=== PATIENT | female | born 1955 | race Caucasian/White ===

== ENCOUNTER 2018-10-29 12:04 | Observation (INO) | payer MEDICARE, BC ==
--- NOTE | 2018-10-29 12:30 | ED ---
Chest Pain HPI - General Chief Complaint: Chest Pain Stated Complaint: poss stemi Time Seen by Provider: 10/29/18 12:19 Source: patient, EMS Mode of arrival: EMS Limitations: no limitations - History of Present Illness Initial Comments: Patient is a 63-year-old female presents with a chief complaint of chest pain. Her pain started about 7:30 this morning. She says that initially when she woke up she felt dizzy. As the day progressed, she began having a burning sensation in her left chest. She admits to nausea and diaphoresis. Patient has a history of angina and is currently on blood pressure medication. She has history of high cholesterol, she is a former smoker, quitting 40 years ago. She is a family history of cardiac and vascular disease. Patient states that she has never had a heart attack or stroke before. The patient was given aspirin and nitroglycerin by EMS, with resolution of her symptoms. - Related Data Home Medications Medication Instructions Recorded Confirmed ALPRAZolam [Xanax] 0.125 - 0.25 mg PO DAILY PRN 10/29/18 10/29/18 Aspirin EC [Ecotrin Low Dose] 81 mg PO DAILY 10/29/18 10/29/18 Atorvastatin Calcium [Lipitor] 20 mg PO DAILY 10/29/18 10/29/18 Esomeprazole Magnesium [NexIUM] 40 mg PO DAILY 10/29/18 10/29/18 Levothyroxine Sodium [Synthroid] 50 mcg PO MOTUWETHFRSA 10/29/18 10/29/18 Levothyroxine Sodium [Synthroid] 100 mcg PO DAILY 10/29/18 10/29/18 Meloxicam [Mobic] 15 mg PO DAILY 10/29/18 10/29/18 Metoprolol Tartrate [Lopressor] 25 mg PO HS 10/29/18 10/29/18 Metoprolol Tartrate [Lopressor] 50 mg PO QAM 10/29/18 10/29/18 Ranolazine [Ranexa] 1,000 mg PO BID 10/29/18 10/29/18 Turmeric-Curcumin 1 tab PO BID 10/29/18 10/29/18 amLODIPine BESYLATE [Norvasc] 2.5 mg PO BID 10/29/18 10/29/18 Allergies Allergy/AdvReac Type Severity Reaction Status Date / Time cephalexin [From Keflex] Allergy Anaphylaxis Verified 10/29/18 12:27 clarithromycin [From Biaxin] Allergy Unknown Verified 10/29/18 12:27 codeine Allergy Rash/Hives Verified 10/29/18 12:27 doxycycline Allergy Rash/Hives Verified 10/29/18 12:27 ibandronate sodium Allergy Unknown Verified 10/29/18 12:27 [From Boniva] Iodinated Contrast- Oral and Allergy Chest Pain Verified 10/29/18 12:27 IV Dye isosorbide [From Imdur] Allergy Confusion Verified 10/29/18 12:27 nitrofurantoin Allergy Rash/Hives Verified 10/29/18 12:27 [From Macrobid] Penicillins Allergy Rash/Hives Verified 10/29/18 12:27 Review of Systems ROS Statement: Those systems with pertinent positive or pertinent negative responses have been documented in the HPI. ROS Other: All systems not noted in ROS Statement are negative. Respiratory: Reports: dyspnea Cardiovascular: Reports: chest pain Gastrointestinal: Reports: nausea Past Medical History Past Medical History: Hyperlipidemia, Hypertension, Thyroid Disorder Additional Past Medical History / Comment(s): ANGINA History of Any Multi-Drug Resistant Organisms: None Reported Past Surgical History: Adenoidectomy, Breast Surgery, Cholecystectomy, Heart Catheterization, Orthopedic Surgery, Tonsillectomy Past Psychological History: No Psychological Hx Reported Smoking Status: Never smoker Past Alcohol Use History: None Reported Past Drug Use History: None Reported General Exam Limitations: no limitations General appearance: alert, in no apparent distress Head exam: Present: atraumatic, normocephalic Eye exam: Present: normal appearance ENT exam: Present: normal exam Neck exam: Present: normal inspection Respiratory exam: Present: normal lung sounds bilaterally. Absent: respiratory distress, wheezes Cardiovascular Exam: Present: regular rate, normal rhythm GI/Abdominal exam: Present: soft. Absent: distended, tenderness Rectal exam: Present: deferred Extremities exam: Present: normal inspection. Absent: pedal edema Back exam: Present: normal inspection, full ROM Neurological exam: Present: alert, oriented X3 Psychiatric exam: Present: normal affect, normal mood Skin exam: Present: warm, dry, intact Course Vital Signs 10/29/18 10/29/18 10/29/18 12:14 12:30 13:00 Temperature 98.1 F Pulse Rate 87 84 79 Respiratory 16 16 16 Rate Blood Pressure 137/82 137/82 126/76 O2 Sat by Pulse 98 98 98 Oximetry 10/29/18 10/29/18 13:30 14:00 Temperature Pulse Rate 80 Respiratory 14 Rate Blood Pressure 130/84 136/68 O2 Sat by Pulse Oximetry Chest Pain MDM - MDM Patient presents with a chief complaint of chest pain. Initial evaluation, vitals are stable, patient is in no acute distress. History is concerning for unstable angina. Her symptoms resolved after nitroglycerin and aspirin. EKG performed at 1209 shows normal sinus rhythm with nonspecific T-wave changes. QT segment is mildly prolonged at 476. There are no acute ischemic findings. There is no previous EKG to compare to. Patient will be evaluated with basic labs and chest x-ray. Cardiac enzymes drawn. Patient will be admitted for further evaluation by cardiology. 2:42 PM Laboratory evaluation this patient is unremarkable. On reevaluation, she remained stable. Case discussed with some physician who accepts admission for further cardiac evaluation. Disposition Clinical Impression: Moderate risk chest pain Disposition: ADMITTED IP TO THIS [facility] Condition: Good Referrals: None,Stated [Primary Care Provider] - 1-2 days Decision to Admit Reason: Admit from EC - Out of Hospital Transfer - Req. Specs Out of Hospital Transfer - Requested Specifics: Telemetry Unit
--- NOTE | 2018-10-29 12:50 | XR ---
EXAMINATION TYPE: XR chest 2V DATE OF EXAM: 10/29/2018 COMPARISON: 12/22/2011 HISTORY: Chest pain TECHNIQUE: Frontal and lateral views of the chest are obtained. FINDINGS: There is no focal air space opacity, pleural effusion, or pneumothorax seen. The cardiac silhouette size is within normal limits. The osseous structures are intact. IMPRESSION: No acute cardiopulmonary process.
[2018-10-29 13:08] LABS: Basophils % (A) 0 %; Eosinophils # (A) 0.1 k/uL (0-0.7); Eosinophils % (A) 1 %; HCT 36.2 % (34.0-46.0); HGB 11.8 gm/dL (11.4-16.0); Lymphocytes # (A) 0.8 k/uL (1.0-4.8); Lymphocytes % (A) 14 %; MCH 30.5 pg (25.0-35.0); MCHC 32.7 g/dL (31.0-37.0); MCV 93.4 fL (80.0-100.0); Mean Platelet Volume 7.3; Monocytes # (A) 0.2 k/uL (0-1.0); Monocytes % (A) 4 %; Neutrophils # (A) 4.1 k/uL (1.3-7.7); Neutrophils % (A) 77 %; Platelet Count 159 k/uL (150-450); RBC 3.87 m/uL (3.80-5.40); RDW 15.1 % (11.5-15.5); WBC 5.3 k/uL (3.8-10.6)
[2018-10-29 13:18] LABS: Calcium 9.1 mg/dL (8.4-10.2)
[2018-10-29] MEDS ORDERED: NALOXONE 0.4 MG/ML 1 ML VIAL IV PRN (14:40)
[2018-10-29] MEDS ORDERED: ALPRAZolam 0.25 MG TAB PO PRN (17:29)
--- NOTE | 2018-10-29 17:39 | P.HPIM ---
History of Present Illness H&P Date: 10/29/18 Chief Complaint: Chest pain 63-year-old female with PMH of hypertension, hypothyroidism, hyperlipidemia, angina presents to the ED for chest pain. Patient reports waking up this morning around 7 AM feeling lightheaded. Lightheadedness was associated with nausea. Patient reports that the symptoms progressively got worse until today. Patient reported chest pain as she was sitting down later on through the day. Pain was described as burning in nature across the wall of the talus. Patient reports radiation of the pain to the left arm. Pain is 6 out of 10 in severity. Patient was given nitro and aspirin by EMS which improved her pain. Pain is not aggravated with movement or deep inspiration. Patient reports taking Ranexa her anginal type chest pain has been ongoing for years. This chest pain was completely different from her anginal chest pain. Her anginal chest pain is described as pressure-like in nature, aggravated with exertion. 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 She does not have a counter clerk [employer] or PCP here. Patient reports smoking for 5 years, half pack daily, quit 40 years ago. Patient reports undergoing a stress test that was negative in March 2018. Patient reports undergoing cardiac catheterization in 2012 which showed mild plaque disease. In the ED, vital signs are stable. CBC and CMP were unremarkable. Troponin was less than 0.012, EKG showing normal sinus rhythm and prolonged QT interval. Chest x-ray was negative. Patient is admitted for chest pain, rule out acute coronary syndrome, cardiology was consulted. Review of Systems Pertinent positives and negatives as discussed in HPI, a complete review of systems was performed and all other systems are negative. Past Medical History Past Medical History: Hyperlipidemia, Hypertension, Thyroid Disorder Additional Past Medical History / Comment(s): ANGINA History of Any Multi-Drug Resistant Organisms: None Reported Past Surgical History: Adenoidectomy, Breast Surgery, Cholecystectomy, Heart Catheterization, Orthopedic Surgery, Tonsillectomy Additional Past Surgical History / Comment(s): breast reduction Past Psychological History: No Psychological Hx Reported Smoking Status: Never smoker Past Alcohol Use History: None Reported Past Drug Use History: None Reported - Past Family History Mother History Unknown: Yes Family Medical History: Coronary Artery Disease (CAD), Myocardial Infarction ([place]) Medications and Allergies Home Medications Medication Instructions Recorded Confirmed Type ALPRAZolam [Xanax] 0.125 - 0.25 mg PO DAILY PRN 10/29/18 10/29/18 History Aspirin EC [Ecotrin Low Dose] 81 mg PO DAILY 10/29/18 10/29/18 History Atorvastatin Calcium [Lipitor] 20 mg PO DAILY 10/29/18 10/29/18 History Esomeprazole Magnesium [NexIUM] 40 mg PO DAILY 10/29/18 10/29/18 History Levothyroxine Sodium [Synthroid] 50 mcg PO MOTUWETHFRSA 10/29/18 10/29/18 History Levothyroxine Sodium [Synthroid] 100 mcg PO DAILY 10/29/18 10/29/18 History Meloxicam [Mobic] 15 mg PO DAILY 10/29/18 10/29/18 History Metoprolol Tartrate [Lopressor] 25 mg PO HS 10/29/18 10/29/18 History Metoprolol Tartrate [Lopressor] 50 mg PO QAM 10/29/18 10/29/18 History Ranolazine [Ranexa] 1,000 mg PO BID 10/29/18 10/29/18 History Turmeric-Curcumin 1 tab PO BID 10/29/18 10/29/18 History amLODIPine BESYLATE [Norvasc] 2.5 mg PO BID 10/29/18 10/29/18 History Allergies Allergy/AdvReac Type Severity Reaction Status Date / Time cephalexin [From Keflex] Allergy Anaphylaxis Verified 10/29/18 12:27 clarithromycin [From Biaxin] Allergy Unknown Verified 10/29/18 12:27 codeine Allergy Rash/Hives Verified 10/29/18 12:27 doxycycline Allergy Rash/Hives Verified 10/29/18 12:27 ibandronate sodium Allergy Unknown Verified 10/29/18 12:27 [From Boniva] Iodinated Contrast- Oral and Allergy Chest Pain Verified 10/29/18 12:27 IV Dye isosorbide [From Imdur] Allergy Confusion Verified 10/29/18 12:27 nitrofurantoin Allergy Rash/Hives Verified 10/29/18 12:27 [From Macrobid] Penicillins Allergy Rash/Hives Verified 10/29/18 12:27 Physical Exam Vitals: Vital Signs Temp Pulse Pulse Resp BP BP Pulse Ox 10/29/18 15:30 98.0 F 81 18 148/83 94 L 10/29/18 15:00 75 15 111/99 97 10/29/18 14:00 80 14 136/68 10/29/18 13:30 130/84 10/29/18 13:00 79 16 126/76 98 10/29/18 12:30 84 16 137/82 98 10/29/18 12:14 98.1 F 87 16 137/82 98 Intake and Output 10/29/18 10/29/18 10/29/18 06:59 14:59 22:59 Other: # Voids 1 Weight 61.235 kg General: [non toxic], [no distress], [appears at stated age] Derm: [warm], [dry] Head: [atraumatic], [normocephalic], [symmetric] Eyes: [EOMI], [no lid lag], [anicteric sclera] Mouth: [no lip lesion], [mucus membranes moist] Cardiovascular: [S1S2 reg], [no murmur], [positive posterior tibial pulse bilateral], Lungs: [CTA bilateral], [no rhonchi, no rales] , [no accessory muscle use] Abdominal: [soft], [ nontender to palpation], [no guarding], [no appreciable organomegaly] Ext: [no gross muscle atrophy], [no edema], [no contractures] Neuro: [ CN II-XI grossly intact], [no focal neuro deficits] Psych: [Alert], [oriented], [appropriate affect] Results CBC & Chem 7: 10/29/18 12:12 10/29/18 12:12 Labs: Abnormal Lab Results - Last 24 Hours (Table) 10/29/18 10/29/18 Range/Units 12:12 12:12 Lymphocytes # 0.8 L (1.0-4.8) k/uL Glucose 144 H (74-99) mg/dL Thrombosis Risk Factor Assmnt - Choose All That Apply Any of the Below Risk Factors Present?: No Other Risk Factors: Yes Each Risk Factor Represents 2 Points: Age 61-74 years Thrombosis Risk Factor Assessment Total Risk Factor Score: 2 Thrombosis Risk Factor Assessment Level: Low Risk Assessment and Plan Assessment: Assessment and Plan Chest pain, atypical with history of typical anginal chest pain. Hypertension Hyperlipidemia Hypothyroidism Troponin less than 0.012 with EKG showing normal sinus rhythm with prolonged QT interval. Chest x-ray negative. Plans: Trend troponin/EKG to rule out ACS. Follow echocardiogram. Follow-up cardiology consultation. Telemetry monitoring . Continue Ranexa. Continue aspirin, Lipitor and beta gloria. BP 148/83. Plans: Continue Amlodipine and Metoprolol. Monitor vitals, adjust medications as necessary. Plans: Continue Lipitor. Plans: Continue Synthroid. Patient admitted for chest pain, rule out acute coronary syndrome, cardiology consulted. She is pending clinical improvement. Likely DC 1-2 days. Patient names her surrogate decision-maker in the case that she can't make decisions for herself. Patient reiterates full code at this time.
[2018-10-29] MEDS: amLODIPine 2.5 MG TAB PO SCH (20:41)
[2018-10-29] MEDS: RANOLAZINE 500 MG TAB.ER.12H PO SCH (20:41)
[2018-10-29] MEDS ORDERED: METOPROLOL TARTRATE 25 MG TAB PO SCH (21:00)
[2018-10-30] MEDS ORDERED: LEVOTHYROXINE 50 MCG TAB PO SCH (06:30)
[2018-10-30] MEDS ORDERED: PANTOPRAZOLE 40 MG TABLET PO SCH (07:30)
[2018-10-30 08:04] LABS: Basophils % (A) 1 %; Eosinophils # (A) 0.1 k/uL (0-0.7); Eosinophils % (A) 1 %; HCT 36.7 % (34.0-46.0); HGB 12.2 gm/dL (11.4-16.0); Lymphocytes # (A) 0.7 k/uL (1.0-4.8); Lymphocytes % (A) 20 %; MCH 30.9 pg (25.0-35.0); MCHC 33.1 g/dL (31.0-37.0); MCV 93.3 fL (80.0-100.0); Mean Platelet Volume 6.6; Monocytes # (A) 0.3 k/uL (0-1.0); Monocytes % (A) 7 %; Neutrophils # (A) 2.6 k/uL (1.3-7.7); Neutrophils % (A) 69 %; Platelet Count 174 k/uL (150-450); RBC 3.94 m/uL (3.80-5.40); RDW 14.7 % (11.5-15.5); WBC 3.8 k/uL (3.8-10.6)
[2018-10-30 08:35] LABS: African American GFR (CKD) >90 (>60 ml/min/1.73 sqM); Anion Gap 7 mmol/L; Blood Urea Nitrogen 13 mg/dL (7-17); Calcium 9.4 mg/dL (8.4-10.2); Carbon Dioxide 28 mmol/L (22-30); Chloride 105 mmol/L (98-107); Glucose 106 mg/dL (74-99); Potassium 3.9 mmol/L (3.5-5.1); Sodium 140 mmol/L (137-145)
[2018-10-30] MEDS ORDERED: METOPROLOL TARTRATE 50 MG TAB PO SCH (09:00)
[2018-10-30] MEDS ORDERED: ASPIRIN 81 MG PO SCH (09:00)
[2018-10-30] MEDS ORDERED: ATORVASTATIN 20 MG TAB PO SCH (09:00)
[2018-10-30 09:19] LABS: Cholesterol 162 mg/dL (<200); HDL Cholesterol 48 mg/dL (40-60); LDL Cholesterol,Calculated 82 mg/dL (0-99); Triglycerides 158 mg/dL (<150)
[2018-10-30] MEDS ORDERED: ATORVASTATIN 80 MG TAB PO STA (10:02)
[2018-10-30] MEDS ORDERED: SODIUM CHLORIDE 0.9% 1,000 ML in EMPTY BAG 1 BAG IV ONE (10:02)
[2018-10-30] MEDS ORDERED: NITROGLYCERIN SL TABS 0.4 MG TAB SUBLINGUAL PRN (10:02)
--- NOTE | 2018-10-30 10:10 | P.CRDCN ---
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 She recently moved here from [place]. She has had to establish with a bricklayer paving brick in [facility]. We've been asked to see her in consultation secondary to chest discomfort. She states she woke up yesterday morning feeling dizzy, like the room was spinning. She has had vertigo in the past but this was not as intense. She then started feeling a warm sensation in her chest from left to right that radiated down the left arm. This persisted for approximately 15 minutes and EMS was called. Upon arrival she was having ongoing chest discomfort they gave her sublingual nitroglycerin and 4 baby aspirin. Her chest pain slowly started to subside however she continued to remain dizzy. She had associated nausea with no vomiting and felt as though she was clammy and diaphoretic. She denies any associated shortness of breath or palpitations. Seen and examined resting comfortably in bed in no acute distress with family at the bedside. She denies any further symptoms of chest discomfort. She states she has been up and walking around the room. EKG reveals sinus mechanism with T-wave abnormality noted in anterior leads. There is no old EKG for comparison. Chest x-ray is negative for an acute cardiopulmonary process. Laboratory data reviewed, cardiac enzymes negative 3, WBC 3.8, hemoglobin 12.2, platelets 174, sodium 140, potassium 3.9, creatinine 0.79, LDL 82 and proBNP 228. Current cardiac medications include Ranexa 1000 mg twice a day, atorvastatin 20 mg daily, Lopressor 50 mg in the morning and 25 mg at bedtime, amlodipine 2.5 mg twice a day and aspirin 81 mg daily. At the time of my exam: CONSTITUTIONAL: Denies fever. Denies chills. EYES: Denies blurred vision. Denies vision changes. Denies eye pain. EARS, NOSE, MOUTH & THROAT: Denies headache. Denies sore throat. Denies ear pain. CARDIOVASCULAR: Denies chest pain. Denies shortness of breath. Denies orthopnea. Denies PND. Denies palpitations. RESPIRATORY: Denies cough. GASTROINTESTINAL: Denies abdominal pain. Denies diarrhea. Denies constipation. Denies nausea. Denies vomiting. MUSCULOSKELETAL: Denies myalgias. INTEGUMENTARY: Denies pruitis. Denies rash. NEUROLOGIC: Denies numbness. Denies tingling. Denies weakness. PSYCHIATRIC: Denies anxiety. Denies depression. ENDOCRINE: Denies fatigue. Denies weight change. Denies polydipsia. Denies polyurina. GENITOURINARY: Denies burning, hematuria or urgency with micturation. HEMATOLOGIC: Denies history of anemia. Denies bleeding. Blood pressure 97/66 heart rate 76 afebrile maintaining oxygen saturation on room air GENERAL: This is a 63-year-old female in no apparent distress at the time of my examination. HEENT: Head is atraumatic, normocephalic. Pupils are equal, round. Sclerae anicteric. Conjunctivae are clear. Mucous membranes of the mouth are moist. Neck is supple. There is no jugular venous distention. No carotid bruit is heard. LUNGS: Clear to auscultation no wheezes, rales or rhonchi. No chest wall tenderness is noted on palpation or with deep breathing. HEART: Regular rate and rhythm without murmurs, rubs or gallops. S1 and S2 heard. ABDOMEN: Soft, nontender. Bowel sounds are heard. No organomegaly noted. EXTREMITIES: No evidence of peripheral edema and no calf tenderness noted. VASCULAR: Radial and dorsalis pedis pulses palpated, no evidence of clubbing. NEUROLOGIC: Patient is awake, alert and oriented x3. ASSESSMENT Unstable angina Hypertension Dyslipidemia Hypothyroidism PLAN Recommend proceeding with cardiac catheterization to assess for obstructive coronary artery disease. I have discussed the risks, benefits and alternative therapies for the above-mentioned procedure and for both sedation/analgesia as well as necessary blood product administration, if indicated, as they pertain to this patient. The patient has indicated understanding and acceptance of the risks and procedures discussed. Questions have been answered appropriately and she is agreeable to move forward with the above stated procedure. Echocardiogram has been obtained and will be reviewed. Decrease Lopressor to 25 mg twice a day and amlodipine to 2.5 mg daily in the morning. Further recommendations to follow based upon clinical course. Thank you kindly for this consultation. Nurse Practitioner note has been reviewed, I agree with a documented findings and plan of care. Patient was seen and examined. Past Medical History Past Medical History: Hyperlipidemia, Hypertension, Thyroid Disorder Additional Past Medical History / Comment(s): ANGINA History of Any Multi-Drug Resistant Organisms: None Reported Past Surgical History: Adenoidectomy, Breast Surgery, Cholecystectomy, Heart Catheterization, Orthopedic Surgery, Tonsillectomy Additional Past Surgical History / Comment(s): breast reduction Past Psychological History: No Psychological Hx Reported Smoking Status: Never smoker Past Alcohol Use History: None Reported Past Drug Use History: None Reported - Past Family History Mother History Unknown: Yes Family Medical History: Coronary Artery Disease (CAD), Myocardial Infarction ([place]) Medications and Allergies Home Medications Medication Instructions Recorded Confirmed Type ALPRAZolam [Xanax] 0.125 - 0.25 mg PO DAILY PRN 10/29/18 10/29/18 History Aspirin EC [Ecotrin Low Dose] 81 mg PO DAILY 10/29/18 10/29/18 History Atorvastatin Calcium [Lipitor] 20 mg PO DAILY 10/29/18 10/29/18 History Esomeprazole Magnesium [NexIUM] 40 mg PO DAILY 10/29/18 10/29/18 History Levothyroxine Sodium [Synthroid] 50 mcg PO MOTUWETHFRSA 10/29/18 10/29/18 History Levothyroxine Sodium [Synthroid] 100 mcg PO KNIGHT 10/29/18 10/29/18 History Meloxicam [Mobic] 15 mg PO DAILY 10/29/18 10/29/18 History Metoprolol Tartrate [Lopressor] 25 mg PO HS 10/29/18 10/29/18 History Metoprolol Tartrate [Lopressor] 50 mg PO QAM 10/29/18 10/29/18 History Ranolazine [Ranexa] 1,000 mg PO BID 10/29/18 10/29/18 History Turmeric-Curcumin 1 tab PO BID 10/29/18 10/29/18 History amLODIPine BESYLATE [Norvasc] 2.5 mg PO BID 10/29/18 10/29/18 History Allergies Allergy/AdvReac Type Severity Reaction Status Date / Time cephalexin [From Keflex] Allergy Anaphylaxis Verified 10/29/18 12:27 clarithromycin [From Biaxin] Allergy Unknown Verified 10/29/18 12:27 codeine Allergy Rash/Hives Verified 10/29/18 12:27 doxycycline Allergy Rash/Hives Verified 10/29/18 12:27 ibandronate sodium Allergy Unknown Verified 10/29/18 12:27 [From Boniva] Iodinated Contrast- Oral and Allergy Chest Pain Verified 10/29/18 12:27 IV Dye isosorbide [From Imdur] Allergy Confusion Verified 10/29/18 12:27 nitrofurantoin Allergy Rash/Hives Verified 10/29/18 12:27 [From Macrobid] Penicillins Allergy Rash/Hives Verified 10/29/18 12:27 Physical Exam Vitals: Vital Signs Temp Pulse Pulse Resp BP BP BP 10/30/18 07:20 98.2 F 76 16 97/66 10/30/18 04:00 98.5 F 61 18 98/63 10/30/18 00:00 72 18 10/29/18 23:54 97.6 F 72 18 114/70 10/29/18 20:00 80 18 10/29/18 19:30 98.1 F 80 18 125/60 10/29/18 15:30 98.0 F 81 18 148/83 10/29/18 15:00 75 15 111/99 10/29/18 14:00 80 14 136/68 10/29/18 13:30 130/84 10/29/18 13:00 79 16 126/76 10/29/18 12:30 84 16 137/82 10/29/18 12:14 98.1 F 87 16 137/82 Pulse Ox 10/30/18 07:20 94 L 10/30/18 04:00 94 L 10/30/18 00:00 10/29/18 23:54 96 10/29/18 20:00 10/29/18 19:30 96 10/29/18 15:30 94 L 10/29/18 15:00 97 10/29/18 14:00 10/29/18 13:30 10/29/18 13:00 98 10/29/18 12:30 98 10/29/18 12:14 98 Intake and Output 10/29/18 10/30/18 10/30/18 22:59 06:59 14:59 Other: # Voids 1 1 Results 10/30/18 07:20 10/30/18 07:20 Cardiac Enzymes 10/29/18 10/29/18 10/30/18 Range/Units 12:12 17:55 00:19 Troponin I <0.012 <0.012 <0.012 (0.000-0.034) ng/mL CBC 10/29/18 10/30/18 Range/Units 12:12 07:20 WBC 5.3 3.8 (3.8-10.6) k/uL RBC 3.87 3.94 (3.80-5.40) m/uL Hgb 11.8 12.2 (11.4-16.0) gm/dL Hct 36.2 36.7 (34.0-46.0) % Plt Count 159 174 (150-450) k/uL Comprehensive Metabolic Panel 10/29/18 Range/Units 12:12 Sodium 140 (137-145) mmol/L Potassium 4.0 (3.5-5.1) mmol/L Chloride 106 (98-107) mmol/L Carbon Dioxide 24 (22-30) mmol/L BUN 12 (7-17) mg/dL Creatinine 0.81 (0.52-1.04) mg/dL Glucose 144 H (74-99) mg/dL Calcium 9.1 (8.4-10.2) mg/dL Current Medications Generic Name Dose Route Start Last Admin Trade Name Freq PRN Reason Stop Dose Admin Alprazolam 0.25 mg 10/29/18 17:29 Xanax PO DAILY PRN Anxiety Amlodipine Besylate 2.5 mg 10/29/18 21:00 10/29/18 20:41 Norvasc PO 2.5 mg BID ISABELLE Administration Aspirin 81 mg 10/30/18 09:00 Aspirin PO DAILY [facility] Atorvastatin Calcium 20 mg 10/30/18 09:00 Lipitor PO DAILY [facility] Levothyroxine Sodium 100 mcg 11/04/18 06:30 Synthroid PO Knight@0630 ISABELLE Levothyroxine Sodium 50 mcg 10/30/18 06:30 10/30/18 06:26 Synthroid PO 50 mcg [id number] ISABELLE Administration Metoprolol Tartrate 25 mg 10/29/18 21:00 10/29/18 20:41 Lopressor PO 25 mg HS ISABELLE Administration Metoprolol Tartrate 50 mg 10/30/18 09:00 Lopressor PO QAM ISABELLE Naloxone HCl 0.2 mg 10/29/18 14:40 Narcan IV Q2M PRN Opioid Reversal Pantoprazole Sodium 40 mg 10/30/18 07:30 Protonix PO [id number] [facility] Ranolazine 1,000 mg 10/29/18 21:00 10/29/18 20:41 Ranexa PO 1,000 mg BID ISABELLE Administration Intake and Output 10/29/18 10/30/18 10/30/18 22:59 06:59 14:59 Other: # Voids 1 1 10/30/18 07:20 10/29/18 12:12
[2018-10-30] MEDS: amLODIPine 2.5 MG TAB PO SCH (10:21)
[2018-10-30] MEDS: RANOLAZINE 500 MG TAB.ER.12H PO SCH (10:21)
[2018-10-30] MEDS ORDERED: methylPREDNISolone SOD SUCCI 125 MG/2 ML VIAL IV STA (11:00)
[2018-10-30] MEDS ORDERED: FAMOTIDINE 20 MG/2 ML VIAL IV STA (11:00)
[2018-10-30] MEDS ORDERED: diphenhydrAMINE 50 MG/ML 1 ML VIAL IVP STA (11:00)
[2018-10-30] MEDS ORDERED: fentaNYL (PF) 50 MCG/ML 2 ML AMP ONE (12:00)
[2018-10-30] MEDS ORDERED: LIDOCAINE 1% INJ 10MG/ML (20 ML MDV) ONE (12:00)
[2018-10-30 12:08] VITALS: TEMP 98.3
[2018-10-30] MEDS ORDERED: fentaNYL (PF) 50 MCG/ML 2 ML AMP IVP ONE (12:15)
[2018-10-30] MEDS ORDERED: MIDAZOLAM (PF) 2 MG/2 ML VIAL IVP ONE (12:15)
[2018-10-30] MEDS ORDERED: LIDOCAINE 1% INJ 10MG/ML (20 ML MDV) SQ ONE (12:17)
[2018-10-30] MEDS ORDERED: IV FLUID CONTINUATION 1,000 ML IV ONE (12:19)
[2018-10-30] MEDS ORDERED: IOPAMIDOL-370 125ML BTL INJ ONE (12:29)
--- NOTE | 2018-10-30 12:33 | ECHOF ---
Referral Reason:Chest pain MEASUREMENTS -------- HEIGHT: 160.0 cm WEIGHT: 61.2 kg BP: 114/70 IVSd: 0.8 cm (0.6 - 1.1) LVIDd: 4.1 cm (3.9 - 5.3) LVPWd: 0.9 cm (0.6 - 1.1) IVSs: 1.4 cm LVIDs: 2.5 cm LVPWs: 1.6 cm LAESV Index (A-L): 20.84 ml/m Ao Diam: 2.6 cm (2.0 - 3.7) AV Cusp: 1.4 cm (1.5 - 2.6) LA Diam: 2.6 cm (2.7 - 3.8) MV EXCURSION: 18.525 mm (> 18.000) MV EF SLOPE: 115 mm/s (70 - 150) EPSS: 0.9 cm MV E Chuck: 0.97 m/s MV A Chuck: 0.78 m/s MV E/A Ratio: 1.24 RAP: 5.00 mmHg RVSP: 32.56 mmHg FINDINGS -------- Sinus rhythm. This was a technically good study. The left ventricular size is normal. Left ventricular wall thickness is normal. Overall left vent ricular systolic function is normal with, an EF between 55 - 60 %. The diastolic filling pattern is normal for the age of the patient 12.85. The right ventricle is normal in size. The left atrial size is normal. Normal LA size by volume 22+/-6 ml/m2. The right atrial size is normal. Interatrial and interventricular septum intact. The aortic valve is trileaflet and appears structurally normal. The mitral valve is normal. Moderate mitral regurgitation is present. The tricuspid valve appears structurally normal. Mild tricuspid regurgitation present. Right vent ricular systolic pressure is normal at < 35 mmHg. There is no pulmonic regurgitation present. The aortic root size is normal. There is no pericardial effusion. CONCLUSIONS -------- 1. Sinus rhythm. 2. This was a technically good study. 3. The left ventricular size is normal. 4. Left ventricular wall thickness is normal. 5. Overall left ventricular systolic function is normal with, an EF between 55 - 60 %. 6. The diastolic filling pattern is normal for the age of the patient 12.85 7. The right ventricle is normal in size. 8. The left atrial size is normal. 9. Normal LA size by volume 22+/-6 ml/m2. 10. The right atrial size is normal. 11. Interatrial and interventricular septum intact. 12. The aortic valve is trileaflet and appears structurally normal. 13. The mitral valve is normal. 14. Moderate mitral regurgitation is present. 15. The tricuspid valve appears structurally normal. 16. Mild tricuspid regurgitation present. 17. Right ventricular systolic pressure is normal at < 35 mmHg. 18. There is no pulmonic regurgitation present. 19. The aortic root size is normal. 20. There is no pericardial effusion. FILE CLERK: Sandra Menjivar RDCS
[2018-10-30] MEDS ORDERED: RX INFO: IV CONTRAST WAS GIVEN 1 EACH MISC MISCELLANE PRN (12:39)
[2018-10-30] MEDS ORDERED: ISOSORBIDE MONONITRATE ER 15 MG TAB PO SCH (12:45)
--- NOTE | 2018-10-30 13:00 | CC ---
CARDIAC CATHETERIZATION REPORT Mrs. Vann is 63-year-old female who was admitted with symptoms suggestive of unstable angina. EKG showed T-wave inversions in the anterolateral leads. This patient had a previous cardiac catheterization and she was told that she had microvascular angina that was done about 6 years ago. In view of the new EKG changes, patient was recommended to have cardiac catheterization to rule out any significant progression in the coronary artery disease. PROCEDURE: The right groin was prepped and draped in the usual manner and the right femoral artery was entered using Seldinger technique and micropuncture needle under ultrasound guidance. A #6-English sheath was placed in. Selective coronary angiography was then performed in multiple projections and the left ventricular pressures were obtained. Patient tolerated the procedure well. HEMODYNAMICS: Left ventricular end-diastolic pressure is 8-10 mmHg prior to angiography. No gradient is noted across the aortic valve. SELECTIVE CORONARY ANGIOGRAPHY: Left main coronary artery is normal and patent. LAD is a good caliber blood vessel and gives rise to a good size diagonal branch. LAD and its branches shows minimal irregularities. Circumflex coronary artery gives rise to a good size obtuse marginal branch and shows mild irregularity. Right coronary artery is normal. FINAL IMPRESSION: 1. This study shows mild irregularity in mid LAD and the diagonal branch. Circumflex and right coronary arteries are normal. Left ventricular end-diastolic pressure is normal. 2. This patient's angina is probably on the basis of vasospasm which is microvascular angina. We will intensify the medical treatment. MMODL / IJN: [id number] /
[2018-10-30 14:31] VITALS: RESP 16
--- NOTE | 2018-10-30 14:49 | P.DS ---
Providers Date of admission: 10/29/18 14:40 Expected date of discharge: 10/30/18 Attending physician: Hal Hinojosa MD Consults: 10/29/18 14:41 Consult Physician Routine Consulting Provider: Harjeet Gregorio Consult Reason/Comments: moderate risk chest pain Do you want consulting provider notified?: Yes Primary care physician: Stated None Hospital Course: 63-year-old female with PMH of hypertension, hypothyroidism, hyperlipidemia, angina presents to the ED for chest pain. Patient reports waking up this morning around 7 AM feeling lightheaded. Lightheadedness was associated with nausea. Patient reports that the symptoms progressively got worse until today. Patient reported chest pain as she was sitting down later on through the day. Pain was described as burning in nature across the wall of the talus. Patient reports radiation of the pain to the left arm. Pain is 6 out of 10 in severity. Patient was given nitro and aspirin by EMS which improved her pain. Pain is not aggravated with movement or deep inspiration. Patient reports taking Ranexa her anginal type chest pain has been ongoing for years. This chest pain was completely different from her anginal chest pain. Her anginal chest pain is described as pressure-like in nature, aggravated with exertion. Patient reports seeing a anesthesiologist physician in [place]. She does not have a anesthesiologist physician or PCP here. Patient reports smoking for 5 years, half pack daily, quit 40 years ago. Patient reports undergoing a stress test that was negative in March 2018. Patient reports undergoing cardiac catheterization in 2012 which showed mild plaque disease. In the ED, vital signs are stable. CBC and CMP were unremarkable. Troponin was less than 0.012, EKG showing normal sinus rhythm and prolonged QT interval. Chest x-ray was negative. Patient is admitted for chest pain, rule out acute coronary syndrome, cardiology was consulted. Troponin was less than 0.0123 with EKG showing normal sinus rhythm with p rolonged QT interval. Chest x-ray was negative. Acute coronary syndrome was ruled out. Cardiology was consulted and recommended cardiac catheterization. Patient was resumed on her aspirin, Lipitor and beta gloria. Echocardiogram showed EF 55-60% without any wall motion abnormalities. Cardiac catheterization showed minimal irregularities. Patient's chest pain was thought to be secondary to microvascular angina on the basis of vasospasm. Patient was seen and examined. No acute events overnight. General: [non toxic], [no distress], [appears at stated age] Derm: [warm], [dry] Head: [atraumatic], [normocephalic], [symmetric] Eyes: [EOMI], [no lid lag], [anicteric sclera] Mouth: [no lip lesion], [mucus membranes moist] Cardiovascular: [S1S2 reg], [no murmur], [positive posterior tibial pulse bilateral], Lungs: [CTA bilateral], [no rhonchi, no rales] , [no accessory muscle use] Abdominal: [soft], [ nontender to palpation], [no guarding], [no appreciable organomegaly] Ext: [no gross muscle atrophy], [no edema], [no contractures] Neuro: [ CN II-XI grossly intact], [no focal neuro deficits] Psych: [Alert], [oriented], [appropriate affect] Assessment and Plan Chest pain, atypical with history of typical anginal chest pain. Hypertension Hyperlipidemia Hypothyroidism Troponin less than 0.0123 with EKG showing normal sinus rhythm with prolonged QT interval. echocardiogram shows EF 55-60% without any wall motion abnormalities. Cardiac catheterization shows minimal irregularities. Chest x- ray negative. Plans:. Follow-up cardiology consultation. Telemetry monitoring. Continue Ranexa. Continue aspirin, Lipitor and beta gloria. BP 120/77. Plans: Continue Amlodipine and Metoprolol. Monitor vitals, adjust medications as necessary. Plans: Continue Lipitor. Plans: Continue Synthroid. Patient admitted for chest pain, rule out acute coronary syndrome, cardiology consulted. Acute coronary syndrome ruled out. Cardiac catheterization with minimal irregularities. DC today with Cardiology clearance. Pertinent Studies: chest x-ray, echocardiogram Procedures: cardiac catheterization Patient Condition at Discharge: Good Plan - Discharge Summary Discharge Rx Participant: No New Discharge Prescriptions: New Isosorbide Mononitrate ER [Imdur] 15 mg PO DAILY #90 dose Nitroglycerin Sl Tabs [Nitrostat] 0.4 mg SUBLINGUAL Q5M PRN #1 bottle PRN Reason: Chest Pain Continue Meloxicam [Mobic] 15 mg PO DAILY Esomeprazole Magnesium [NexIUM] 40 mg PO DAILY Aspirin EC [Ecotrin Low Dose] 81 mg PO DAILY Levothyroxine Sodium [Synthroid] 100 mcg PO SENIOR Levothyroxine Sodium [Synthroid] 50 mcg PO MOTUWETHFRSA ALPRAZolam [Xanax] 0.125 - 0.25 mg PO DAILY PRN PRN Reason: Anxiety amLODIPine BESYLATE [Norvasc] 2.5 mg PO BID Metoprolol Tartrate [Lopressor] 25 mg PO HS Metoprolol Tartrate [Lopressor] 50 mg PO QAM Atorvastatin Calcium [Lipitor] 20 mg PO DAILY Ranolazine [Ranexa] 1,000 mg PO BID Discontinued Turmeric-Curcumin 1 tab PO BID Discharge Medication List ALPRAZolam [Xanax] 0.125 - 0.25 mg PO DAILY PRN 10/29/18 [History] Aspirin EC [Ecotrin Low Dose] 81 mg PO DAILY 10/29/18 [History] Atorvastatin Calcium [Lipitor] 20 mg PO DAILY 10/29/18 [History] Esomeprazole Magnesium [NexIUM] 40 mg PO DAILY 10/29/18 [History] Levothyroxine Sodium [Synthroid] 50 mcg PO MOTUWETHFRSA 10/29/18 [History] Levothyroxine Sodium [Synthroid] 100 mcg PO SENIOR 10/29/18 [History] Meloxicam [Mobic] 15 mg PO DAILY 10/29/18 [History] Metoprolol Tartrate [Lopressor] 25 mg PO HS 10/29/18 [History] Metoprolol Tartrate [Lopressor] 50 mg PO QAM 10/29/18 [History] Ranolazine [Ranexa] 1,000 mg PO BID 10/29/18 [History] amLODIPine BESYLATE [Norvasc] 2.5 mg PO BID 10/29/18 [History] Isosorbide Mononitrate ER [Imdur] 15 mg PO DAILY #90 dose 10/30/18 [Rx] Nitroglycerin Sl Tabs [Nitrostat] 0.4 mg SUBLINGUAL Q5M PRN #1 bottle 10/30/18 [Rx] Follow up Appointment(s)/Referral(s): None,Stated [Primary Care Provider] - 1-2 days Florecita Aranda MD [STAFF PHYSICIAN] - 2 Weeks Activity/Diet/Wound Care/Special Instructions: diet: Heart healthy Follow-up PCP within 1-2 days of discharge. Follow-up cardiology within 1 week of discharge. Take all medications as advised. Discharge Disposition: HOME SELF-CARE
[2018-10-30 17:16] VITALS: BP 100/54; PULSE 80
[2018-10-30] MEDS ORDERED: METOPROLOL TARTRATE 25 MG TAB PO SCH (21:00)
[2018-10-31] MEDS ORDERED: amLODIPine 2.5 MG TAB PO SCH (09:00)
[2018-11-04] MEDS ORDERED: LEVOTHYROXINE 100 MCG TAB PO SCH (06:30)
== END 2018-10-30 19:00 | disposition home or self-care (01) ==
LOC: EC 12:04 → 1SOBS 14:40
PROVIDERS: ADMIT Family Medicine; ATTEND Family Medicine
DX: R07.89 Other chest pain (principal); I10 Essential (primary) hypertension; E78.5 Hyperlipidemia, unspecified; I20.9 Angina pectoris, unspecified; R23.1 Pallor; E03.9 Hypothyroidism, unspecified; R42 Dizziness and giddiness; R11.0 Nausea; R61 Generalized hyperhidrosis; I45.81 Long QT syndrome; E78.00 Pure hypercholesterolemia, unspecified; Z79.82 Long term (current) use of aspirin; Z79.890 Hormone replacement therapy; Z79.1 Long term (current) use of non-steroidal anti-inflammatories (NSAID); Z79.899 Other long term (current) drug therapy; Z88.0 Allergy status to penicillin; Z88.5 Allergy status to narcotic agent; Z88.1 Allergy status to other antibiotic agents; Z88.8 Allergy status to other drugs, medicaments and biological substances; Z91.041 Radiographic dye allergy status; Z90.49 Acquired absence of other specified parts of digestive tract; Z87.891 Personal history of nicotine dependence; Z82.49 Family history of ischemic heart disease and other diseases of the circulatory system
CPT/HCPCS: 99285; 36415; 93005; 93306; 93458; 83880; 80061; 80048 ×2; 84484 ×2; 85025 ×2; 71046; G0378 ×2; C1760; C1894; C1769 ×2; J1200; J2930; J2001; J3010; Q9967; J2250

== ENCOUNTER → 2019-01-11 | Outpatient (CLI) | payer MEDICARE, BC ==
--- NOTE | 2019-01-13 20:09 | US ---
EXAMINATION TYPE: US thyroid st tissue head/neck DATE OF EXAM: 01/11/2019 COMPARISON: NONE CLINICAL HISTORY: 63-year-old female E04.8 Goiter. Patient on Synthroid TECHNIQUE: Multiple sonographic images of the thyroid gland are obtained. FINDINGS: GLAND SIZE: Right Lobe: 3.6 x 1.3 x 1.2 cm Overall Parenchyma: homogenous Left Lobe: 2.9 x 1.1 x 1.0 cm Overall Parenchyma: homogeneous Isthmus Thickness: 0.2 cm NODULES RIGHT: # of nodules measured on right: 1 1. 1.3 X 0.6 x 0.9 cm hypoechoic solid nodule at the lower pole with well-defined margins. This no dule is wider than tall and shows intranodular vascularity. Prior size: no prior LEFT: # of nodules measured on left: 0 ISTHMUS: # of nodules measured in the isthmus: 0 Bilateral neck scanned, no evidence of lymphadenopathy. IMPRESSION: A 1.3 cm solid nodule at the right lower pole. Follow-up can be considered.
== END ==
LOC: RADUSWWP 16:06
PROVIDERS: ATTEND Family Medicine
DX: E04.1 Nontoxic single thyroid nodule (principal)
CPT/HCPCS: 76536

== ENCOUNTER 2019-03-11 17:23 | Emergency (ER) | payer MEDICARE, BC ==
[2019-03-11] MEDS ORDERED: SODIUM CHLORIDE 0.9% 1,000 ML IV STA ×2 (17:42→20:51)
[2019-03-11] MEDS ORDERED: PANTOPRAZOLE 40 MG/10 ML VIAL IVP STA (17:42)
[2019-03-11] MEDS ORDERED: FAMOTIDINE 20 MG/2 ML VIAL IV STA (17:50)
[2019-03-11] MEDS ORDERED: diphenhydrAMINE 50 MG/ML 1 ML VIAL IVP STA (17:50)
[2019-03-11] MEDS ORDERED: methylPREDNISolone SOD SUCCI 125 MG/2 ML VIAL IV STA (17:51)
--- NOTE | 2019-03-11 18:02 | ED ---
Abdominal Pain HPI <ShannanerikaJoao - Last Filed: 03/11/19 22:29> - General Source: patient, EMS, RN notes reviewed Mode of arrival: EMS Limitations: no limitations - History of Present Illness MD Complaint: abdominal pain <Jeremy Barnard - Last Filed: 03/14/19 11:19> - General Chief Complaint: Abdominal Pain Stated Complaint: abdominal pain Time Seen by Provider: 03/11/19 17:36 - History of Present Illness Initial Comments: This is a 63-year-old female who presents by EMS with complaints of dizziness and nausea for past 3 days also abdominal pain for the same period time over the epigastric area. Somewhat dull in nature. She also states she's had a 21 pound weight loss last 3 months. No diarrhea no constipation. She still has her gallbladder no prior history of ulcers she states. She did feel somewhat weak and lightheaded she states. No other modifying factors at this time (Jeremy Barnard) - Related Data Home Medications Medication Instructions Recorded Confirmed ALPRAZolam [Xanax] 0.125 - 0.25 mg PO DAILY PRN 10/29/18 03/11/19 Aspirin EC [Ecotrin Low Dose] 81 mg PO DAILY 10/29/18 03/11/19 Atorvastatin Calcium [Lipitor] 20 mg PO DAILY 10/29/18 03/11/19 Levothyroxine Sodium [Synthroid] 50 mcg PO MOTUWETHFRSA 10/29/18 03/11/19 Levothyroxine Sodium [Synthroid] 100 mcg PO SENIOR 10/29/18 03/11/19 Metoprolol Tartrate [Lopressor] 25 mg PO HS 10/29/18 03/11/19 Metoprolol Tartrate [Lopressor] 50 mg PO QAM 10/29/18 03/11/19 Ranolazine [Ranexa] 1,000 mg PO BID 10/29/18 03/11/19 amLODIPine BESYLATE [Norvasc] 2.5 mg PO BID 10/29/18 03/11/19 Esomeprazole Magnesium [NexIUM 40 mg PO DAILY 03/11/19 03/11/19 24Hr] Sulfamethox-Tmp 800-160Mg [Bactrim 1 tab PO BID 03/11/19 03/11/19 DS 800-160 mg] Previous Rx's Medication Instructions Recorded Nitroglycerin Sl Tabs [Nitrostat] 0.4 mg SUBLINGUAL Q5M PRN #1 bottle 10/30/18 Allergies Allergy/AdvReac Type Severity Reaction Status Date / Time cephalexin [From Keflex] Allergy Anaphylaxis Verified 10/29/18 12:27 clarithromycin [From Biaxin] Allergy Unknown Verified 10/29/18 12:27 codeine Allergy Rash/Hives Verified 10/29/18 12:27 doxycycline Allergy Rash/Hives Verified 10/29/18 12:27 ibandronate sodium Allergy Unknown Verified 10/29/18 12:27 [From Boniva] Iodinated Contrast Media Allergy Chest Pain Verified 10/29/18 12:27 [Iodinated Contrast- Oral and IV Dye] isosorbide [From Imdur] Allergy Confusion,M Verified 03/11/19 18:10 IGRAINE nitrofurantoin Allergy Rash/Hives Verified 10/29/18 12:27 [From Macrobid] Penicillins Allergy Rash/Hives Verified 10/29/18 12:27 Review of Systems ROS Other: All systems not noted in ROS Statement are negative. <Joao Melissa - Last Filed: 03/11/19 22:29> ROS Other: All systems not noted in ROS Statement are negative. <Jeremy Barnard - Last Filed: 03/14/19 11:19> ROS Statement: Those systems with pertinent positive or pertinent negative responses have been documented in the HPI. Past Medical History Past Medical History: Hyperlipidemia, Hypertension, Thyroid Disorder Additional Past Medical History / Comment(s): ANGINA History of Any Multi-Drug Resistant Organisms: None Reported Past Surgical History: Adenoidectomy, Breast Surgery, Cholecystectomy, Heart Catheterization, Orthopedic Surgery, Tonsillectomy Additional Past Surgical History / Comment(s): breast reduction Past Psychological History: No Psychological Hx Reported Smoking Status: Never smoker Past Alcohol Use History: None Reported Past Drug Use History: None Reported - Past Family History Mother History Unknown: Yes Family Medical History: Coronary Artery Disease (CAD), Myocardial Infarction (OR) <Jeremy Barnard - Last Filed: 03/14/19 11:19> General Exam Limitations: no limitations General appearance: alert Head exam: Present: atraumatic, normocephalic, normal inspection Eye exam: Present: normal appearance, PERRL, EOMI. Absent: scleral icterus, conjunctival injection, periorbital swelling ENT exam: Present: mucous membranes dry Neck exam: Present: normal inspection, full ROM, other (No stridor JVD or bruits). Absent: tenderness, meningismus, lymphadenopathy Respiratory exam: Present: normal lung sounds bilaterally. Absent: respiratory distress, wheezes, rales, rhonchi, stridor Cardiovascular Exam: Present: regular rate, normal rhythm, normal heart sounds. Absent: systolic murmur, diastolic murmur, rubs, gallop, clicks GI/Abdominal exam: Present: soft, tenderness (Epigastric tenderness with no guarding rebound or is prominence of the abdominal aortic pulse without bruit), normal bowel sounds. Absent: distended, guarding, rebound, rigid Rectal exam: Present: deferred Extremities exam: Present: normal inspection, full ROM, normal capillary refill. Absent: tenderness, pedal edema, joint swelling, calf tenderness Back exam: Present: normal inspection Neurological exam: Present: alert, oriented X3, CN II-XII intact Psychiatric exam: Present: normal affect, normal mood Skin exam: Present: warm, dry, intact, normal color. Absent: rash <Jeremy Barnard - Last Filed: 03/14/19 11:19> - General Exam Comments Initial Comments: This is a well-developed sec appearing female who is awake alert oriented 3 (Jeremy Barnard) Course Vital Signs 03/11/19 03/11/19 03/11/19 17:25 17:37 18:01 Temperature 98.7 F Pulse Rate 83 91 81 Respiratory 16 16 16 Rate Blood Pressure 116/64 116/64 105/60 O2 Sat by Pulse 100 98 98 Oximetry 03/11/19 03/11/19 03/11/19 19:16 20:00 21:00 Temperature 99 F Pulse Rate 72 68 66 Respiratory 18 16 20 Rate Blood Pressure 110/58 90/49 90/53 O2 Sat by Pulse 97 97 98 Oximetry 03/11/19 03/11/19 03/11/19 22:00 22:19 23:18 Temperature 98 F Pulse Rate 70 75 77 Respiratory 20 18 18 Rate Blood Pressure 87/50 100/57 100/77 O2 Sat by Pulse 98 99 97 Oximetry Medical Decision Making - Lab Data Result diagrams: 03/11/19 17:25 03/11/19 17:25 <Joao Melisas - Last Filed: 11/11/19 22:29> - Lab Data Result diagrams: 03/11/19 17:25 03/11/19 17:25 - EKG Data -: EKG Interpreted by Me EKG shows normal: sinus rhythm (Sinus rhythm of 82 MT interval 150 QRS duration 80 QT since QTC 380/443 nonspecific T-wave configuration) <AkilJeremy - Last Filed: 03/14/19 11:19> - Medical Decision Making I did have discussion with patient and family member regarding the results of today's studies and my recommendation for further follow-up testing to ascertain the etiology of patient's fatigue. I did offer admission here, but the patient states that she would rather go home and continue workup as outpatient. (Joao Melissa) - Lab Data Lab Results 03/11/19 03/11/19 03/11/19 Range/Units 17:25 17:25 17:25 WBC 5.3 (3.8-10.6) k/uL RBC 3.87 (3.80-5.40) m/uL Hgb 12.6 (11.4-16.0) gm/dL Hct 36.3 (34.0-46.0) % MCV 93.8 (80.0-100.0) fL MCH 32.6 (25.0-35.0) pg MCHC 34.7 (31.0-37.0) g/dL RDW 14.6 (11.5-15.5) % Plt Count 202 (150-450) k/uL Neutrophils % (Manual) 62 % Lymphocytes % (Manual) 30 % Monocytes % (Manual) 8 % Neutrophils # (Manual) 3.29 (1.3-7.7) k/uL Lymphocytes # (Manual) 1.59 (1.0-4.8) k/uL Monocytes # (Manual) 0.42 (0-1.0) k/uL Nucleated RBCs 0 (0-0) /100 WBC Manual Slide Review Performed PT (9.0-12.0) sec INR (<1.2) APTT (22.0-30.0) sec Sodium 139 (137-145) mmol/L Potassium 4.0 (3.5-5.1) mmol/L Chloride 107 (98-107) mmol/L Carbon Dioxide 23 (22-30) mmol/L Anion Gap 9 mmol/L BUN 15 (7-17) mg/dL Creatinine 0.87 (0.52-1.04) mg/dL Est GFR (CKD-EPI)AfAm 81 (>60 ml/min/1.73 sqM) Est GFR (CKD-EPI)NonAf 70 (>60 ml/min/1.73 sqM) Glucose 95 (74-99) mg/dL Plasma Lactic Acid Andrea 0.9 (0.7-2.0) mmol/L Calcium 9.3 (8.4-10.2) mg/dL Total Bilirubin 0.4 (0.2-1.3) mg/dL AST 27 (14-36) U/L ALT 33 (9-52) U/L Alkaline Phosphatase 63 (38-126) U/L Creatine Kinase 72 (30-135) U/L Troponin I (0.000-0.034) ng/mL Total Protein 6.6 (6.3-8.2) g/dL Albumin 4.2 (3.5-5.0) g/dL Amylase 54 (30-110) U/L Lipase 166 (23-300) U/L TSH (0.465-4.680) mIU/L Urine Color Urine Appearance (Clear) Urine pH (5.0-8.0) Ur Specific Mingo (1.001-1.035) Urine Protein (Negative) Urine Glucose (UA) (Negative) Urine Ketones (Negative) Urine Blood (Negative) Urine Nitrite (Negative) Urine Bilirubin (Negative) Urine Urobilinogen (<2.0) mg/dL Ur Leukocyte Esterase (Negative) Urine RBC (0-5) /hpf Urine WBC (0-5) /hpf Ur Squamous Epith Cells (0-4) /hpf Blood Type Blood Type Confirm Blood Type Recheck Bld Type Recheck Status Antibody Screen Spec Expiration Date 03/11/19 03/11/19 03/11/19 Range/Units 17:25 17:25 17:25 WBC (3.8-10.6) k/uL RBC (3.80-5.40) m/uL Hgb (11.4-16.0) gm/dL Hct (34.0-46.0) % MCV (80.0-100.0) fL MCH (25.0-35.0) pg MCHC (31.0-37.0) g/dL RDW (11.5-15.5) % Plt Count (150-450) k/uL Neutrophils % (Manual) % Lymphocytes % (Manual) % Monocytes % (Manual) % Neutrophils # (Manual) (1.3-7.7) k/uL Lymphocytes # (Manual) (1.0-4.8) k/uL Monocytes # (Manual) (0-1.0) k/uL Nucleated RBCs (0-0) /100 WBC Manual Slide Review PT 10.6 (9.0-12.0) sec INR 1.0 (<1.2) APTT 23.7 (22.0-30.0) sec Sodium (137-145) mmol/L Potassium (3.5-5.1) mmol/L Chloride (98-107) mmol/L Carbon Dioxide (22-30) mmol/L Anion Gap mmol/L BUN (7-17) mg/dL Creatinine (0.52-1.04) mg/dL Est GFR (CKD-EPI)AfAm (>60 ml/min/1.73 sqM) Est GFR (CKD-EPI)NonAf (>60 ml/min/1.73 sqM) Glucose (74-99) mg/dL Plasma Lactic Acid Andrea (0.7-2.0) mmol/L Calcium (8.4-10.2) mg/dL Total Bilirubin (0.2-1.3) mg/dL AST (14-36) U/L ALT (9-52) U/L Alkaline Phosphatase (38-126) U/L Creatine Kinase (30-135) U/L Troponin I <0.012 (0.000-0.034) ng/mL Total Protein (6.3-8.2) g/dL Albumin (3.5-5.0) g/dL Amylase (30-110) U/L Lipase (23-300) U/L TSH (0.465-4.680) mIU/L Urine Color Urine Appearance (Clear) Urine pH (5.0-8.0) Ur Specific Mingo (1.001-1.035) Urine Protein (Negative) Urine Glucose (UA) (Negative) Urine Ketones (Negative) Urine Blood (Negative) Urine Nitrite (Negative) Urine Bilirubin (Negative) Urine Urobilinogen (<2.0) mg/dL Ur Leukocyte Esterase (Negative) Urine RBC (0-5) /hpf Urine WBC (0-5) /hpf Ur Squamous Epith Cells (0-4) /hpf Blood Type B Positive Blood Type Confirm Blood Type Recheck No Previous Record Bld Type Recheck Status CABO Indicated Antibody Screen NEGATIVE Spec Expiration Date 03/14/2019232403/11/19 03/11/19 03/11/19 Range/Units 17:25 17:30 20:43 WBC (3.8-10.6) k/uL RBC (3.80-5.40) m/uL Hgb (11.4-16.0) gm/dL Hct (34.0-46.0) % MCV (80.0-100.0) fL MCH (25.0-35.0) pg MCHC (31.0-37.0) g/dL RDW (11.5-15.5) % Plt Count (150-450) k/uL Neutrophils % (Manual) % Lymphocytes % (Manual) % Monocytes % (Manual) % Neutrophils # (Manual) (1.3-7.7) k/uL Lymphocytes # (Manual) (1.0-4.8) k/uL Monocytes # (Manual) (0-1.0) k/uL Nucleated RBCs (0-0) /100 WBC Manual Slide Review PT (9.0-12.0) sec INR (<1.2) APTT (22.0-30.0) sec Sodium (137-145) mmol/L Potassium (3.5-5.1) mmol/L Chloride (98-107) mmol/L Carbon Dioxide (22-30) mmol/L Anion Gap mmol/L BUN (7-17) mg/dL Creatinine (0.52-1.04) mg/dL Est GFR (CKD-EPI)AfAm (>60 ml/min/1.73 sqM) Est GFR (CKD-EPI)NonAf (>60 ml/min/1.73 sqM) Glucose (74-99) mg/dL Plasma Lactic Acid Andrea (0.7-2.0) mmol/L Calcium (8.4-10.2) mg/dL Total Bilirubin (0.2-1.3) mg/dL AST (14-36) U/L ALT (9-52) U/L Alkaline Phosphatase (38-126) U/L Creatine Kinase (30-135) U/L Troponin I (0.000-0.034) ng/mL Total Protein (6.3-8.2) g/dL Albumin (3.5-5.0) g/dL Amylase (30-110) U/L Lipase (23-300) U/L TSH 4.530 (0.465-4.680) mIU/L Urine Color Yellow Urine Appearance Clear (Clear) Urine pH 6.5 (5.0-8.0) Ur Specific Mingo >1.050 H (1.001-1.035) Urine Protein Negative (Negative) Urine Glucose (UA) Negative (Negative) Urine Ketones 1+ H (Negative) Urine Blood Negative (Negative) Urine Nitrite Negative (Negative) Urine Bilirubin Negative (Negative) Urine Urobilinogen 2.0 (<2.0) mg/dL Ur Leukocyte Esterase Large H (Negative) Urine RBC 9 H (0-5) /hpf Urine WBC 9 H (0-5) /hpf Ur Squamous Epith Cells <1 (0-4) /hpf Blood Type Blood Type Confirm B Positive Blood Type Recheck Bld Type Recheck Status Antibody Screen Spec Expiration Date Disposition Is patient prescribed a controlled substance at d/c from ED?: No <Joao Melissa - Last Filed: 03/11/19 22:29> <Jeremy Barnard - Last Filed: 03/14/19 11:19> Clinical Impression: Urinary tract infection, Fatigue Disposition: HOME SELF-CARE Condition: Good Instructions (If sedation given, give patient instructions): Urinary Tract Infection in Women (ED), Fatigue (ED) Additional Instructions: As we discussed, follow with your physician for referrals to the other specialists. Should any of her symptoms recur, return to the emergency department. Referrals: Ric Jain MD [Primary Care Provider] - 1-2 days
[2019-03-11 18:20] LABS: HCT 36.3 % (34.0-46.0); HGB 12.6 gm/dL (11.4-16.0); MCH 32.6 pg (25.0-35.0); MCHC 34.7 g/dL (31.0-37.0); MCV 93.8 fL (80.0-100.0); Mean Platelet Volume 5.7; Platelet Count 202 k/uL (150-450); RBC 3.87 m/uL (3.80-5.40); RDW 14.6 % (11.5-15.5); WBC 5.3 k/uL (3.8-10.6)
[2019-03-11 18:28] LABS: Albumin 4.2 g/dL (3.5-5.0); Calcium 9.3 mg/dL (8.4-10.2); Partial Thromboplastin Time 23.7 sec (22.0-30.0); Prothrombin Time 10.6 sec (9.0-12.0); Total Bilirubin 0.4 mg/dL (0.2-1.3); Total Protein 6.6 g/dL (6.3-8.2)
--- NOTE | 2019-03-11 18:36 | XR ---
EXAMINATION TYPE: XR KUB DATE OF EXAM: 03/11/2019 COMPARISON: NONE HISTORY: Dizziness. Bilateral upper quadrant pain TECHNIQUE: 2 views upright FINDINGS: There is some contrast in the kidneys and urinary bladder. There is no sign of intestinal o bstruction or pneumoperitoneum. Fecal pattern is normal. Lung bases are clear. There are no pathologi c calcifications over the kidneys. IMPRESSION: Nonacute abdomen. Minimal lumbar dextroscoliosis.
[2019-03-11 18:42] LABS: Lymphocytes # (M) 1.59 k/uL (1.0-4.8); Monocytes # (M) 0.42 k/uL (0-1.0); Neutrophils % (M) 62 %; Nucleated Red Blood Cells 0 /100 WBC (0-0); Total Cells Counted 100
--- NOTE | 2019-03-11 18:49 | CT ---
EXAMINATION TYPE: CT angio thor/abd pel aorta DATE OF EXAM: 03/11/2019 COMPARISON: HISTORY: Mid abdominal pain, dizziness and nausea. CT DLP: 1038.2 mGycm. Automated Exposure Control for Dose Reduction was Utilized. CONTRAST: CT scan of the thorax, abdomen and pelvis is performed without and with IV Contrast, patient injected with 100 mL of Isovue 370. There are 3-D post processed images. FINDINGS: The lungs are clear of consolidation. There is mild subsegmental atelectasis at the lung bases. There is no pleural effusion. Heart size is normal. There is no pericardial effusion. There is no mediasti nal adenopathy. There are no hilar masses. There is normal contrast opacification of the pulmonary ar teries. There are no filling defects. The ascending aorta measures 3 cm. There is no aortic aneurysm or dissection. There is patency of the celiac artery and superior mesenteric artery. There is bilateral patency of the renal arteries. Ther e is bilateral patency of the iliac and femoral arteries. I see no sign of hemodynamic stenosis. Bladder distends smoothly. There is no inguinal hernia. There is no evidence of a pelvic mass. There is no ascites. Kidneys show satisfactory contrast opacification. There is no hydronephrosis. There is no retroperitoneal adenopathy. Liver spleen stomach pancreas appear normal. Bile ducts are not dilated. Gallbladder is not seen with certainty. There are some spondylotic changes in the thoracic and lumbar spine. There is a first-degree L4-5 spo ndylolisthesis. There is no spondylolysis. There is moderate spinal stenosis at L4-5. IMPRESSION: Negative CT angiogram of the chest abdomen pelvis. L4-5 spondylolisthesis. No acute abnormality of the abdomen pelvis. Minimal subsegmental atelectasis.
[2019-03-11 20:58] LABS: Appearance,Urine Clear (Clear); Bilirubin,Urine Negative (Negative); Blood,Urine Negative (Negative); Color,Urine Yellow; Glucose,Urine (UA) Negative (Negative); Ketones,Urine 1+ (Negative); Leukocyte Esterase,Urine Large (Negative); Nitrite,Urine Negative (Negative); PH, Urine 6.5 (5.0-8.0); Protein,Urine Negative (Negative); RBC,Urine 9 /hpf (0-5); Squamous Epithelial Cell,Urine <1 /hpf (0-4); WBC,Urine 9 /hpf (0-5)
[2019-03-11 21:01] LABS: Specific Gravity,Urine >1.050 (1.001-1.035)
[2019-03-11 22:20] VITALS: RESP 18
[2019-03-11 23:20] VITALS: BP 100/77; PULSE 77; TEMP 98
== END 2019-03-11 23:21 | disposition home or self-care (01) ==
LOC: EC 17:23
DX: N39.0 Urinary tract infection, site not specified (principal); I10 Essential (primary) hypertension; E07.9 Disorder of thyroid, unspecified; Z79.82 Long term (current) use of aspirin; Z79.890 Hormone replacement therapy; Z79.899 Other long term (current) drug therapy; Z88.1 Allergy status to other antibiotic agents; Z88.5 Allergy status to narcotic agent; Z91.041 Radiographic dye allergy status; Z88.0 Allergy status to penicillin; Z88.8 Allergy status to other drugs, medicaments and biological substances
CPT/HCPCS: 36415; 93005; 86900; 86901; 80053; 84443; 82150; 82550; 83605; 83690; 84484; 85025; 85610; 85730; 86850; 81001; 74018; 71275; 74174; 99285; 96374; 96375 ×3; 96361 ×5; J1200; J2930; C9113; Q9967

== ENCOUNTER → 2019-04-09 | Outpatient (CLI) | payer MEDICARE, BC ==
--- NOTE | 2019-04-09 12:59 | US ---
EXAMINATION TYPE: US extremity nonvascular ltd RT DATE OF EXAM: 04/09/2019 COMPARISON: NONE CLINICAL HISTORY: M71.2 Synovial cyst popliteal space. Right Popliteal Fossa US: noted popliteal fossa cyst = 4.8 x 4.0 x 1.9cm IMPRESSION: 4.8 cm popliteal fossa cyst. Correlate with MRI as clinically warranted.
== END | disposition home or self-care (01) ==
LOC: RADUSWWP 12:12
PROVIDERS: ATTEND Family Medicine
DX: M71.21 Synovial cyst of popliteal space [Baker], right knee (principal)

== ENCOUNTER 2019-04-16 22:13 | Emergency (ER) | payer MEDICARE, BC ==
[2019-04-16 22:29] VITALS: BP 134/74; RESP 18; TEMP 98.4
[2019-04-16] MEDS ORDERED: ALBUTEROL NEBULIZED 2.5 MG/3 ML INHALATION STA (22:37)
[2019-04-16] MEDS ORDERED: DEXAMETHASONE 4 MG TAB PO STA (22:37)
--- NOTE | 2019-04-16 22:40 | ED ---
General Adult HPI - General Chief complaint: Upper Respiratory Infection Stated complaint: Cough Time Seen by Provider: 04/16/19 22:33 Source: patient, RN notes reviewed, old records reviewed Mode of arrival: ambulatory Limitations: no limitations - History of Present Illness Initial comments: 63-year-old female presenting for evaluation of cough, congestion, sore throat. Patient's symptoms have been present for approximately 4-5 days. She does report low-grade fever. She denies central chest pain. She has some dyspnea associated with her cough. Cough is productive of sputum. She is a nonsmoker, no history of asthma or COPD. No history of heart failure. No history DVT or PE. No nausea vomiting or diarrhea. No lower extremity pain or swelling. - Related Data Home Medications Medication Instructions Recorded Confirmed ALPRAZolam [Xanax] 0.125 - 0.25 mg PO DAILY PRN 10/29/18 03/11/19 Aspirin EC [Ecotrin Low Dose] 81 mg PO DAILY 10/29/18 03/11/19 Atorvastatin Calcium [Lipitor] 20 mg PO DAILY 10/29/18 03/11/19 Levothyroxine Sodium [Synthroid] 50 mcg PO MOTUWETHFRSA 10/29/18 03/11/19 Levothyroxine Sodium [Synthroid] 100 mcg PO SENIOR 10/29/18 03/11/19 Metoprolol Tartrate [Lopressor] 25 mg PO HS 10/29/18 03/11/19 Metoprolol Tartrate [Lopressor] 50 mg PO QAM 10/29/18 03/11/19 Ranolazine [Ranexa] 1,000 mg PO BID 10/29/18 03/11/19 amLODIPine BESYLATE [Norvasc] 2.5 mg PO BID 10/29/18 03/11/19 Esomeprazole Magnesium [NexIUM 40 mg PO DAILY 03/11/19 03/11/19 24Hr] Sulfamethox-Tmp 800-160Mg [Bactrim 1 tab PO BID 03/11/19 03/11/19 DS 800-160 mg] Previous Rx's Medication Instructions Recorded Nitroglycerin Sl Tabs [Nitrostat] 0.4 mg SUBLINGUAL Q5M PRN #1 bottle 10/30/18 Albuterol Inhaler [Ventolin Hfa 1 - 2 puff INHALATION Q4HR PRN #1 04/16/19 Inhaler] inhaler methylPREDNISolone Dose Pack 4 mg PO DIRECTED #21 package 04/16/19 [Medrol Dose Pack] Allergies Allergy/AdvReac Type Severity Reaction Status Date / Time cephalexin [From Keflex] Allergy Anaphylaxis Verified 10/29/18 12:27 clarithromycin [From Biaxin] Allergy Unknown Verified 10/29/18 12:27 codeine Allergy Rash/Hives Verified 10/29/18 12:27 doxycycline Allergy Rash/Hives Verified 10/29/18 12:27 ibandronate sodium Allergy Unknown Verified 10/29/18 12:27 [From Boniva] Iodinated Contrast Media Allergy Chest Pain Verified 10/29/18 12:27 [Iodinated Contrast- Oral and IV Dye] isosorbide [From Imdur] Allergy Confusion,M Verified 03/11/19 18:10 IGRAINE nitrofurantoin Allergy Rash/Hives Verified 10/29/18 12:27 [From Macrobid] Penicillins Allergy Rash/Hives Verified 10/29/18 12:27 Review of Systems ROS Statement: Those systems with pertinent positive or pertinent negative responses have been documented in the HPI. ROS Other: All systems not noted in ROS Statement are negative. Past Medical History Past Medical History: Hyperlipidemia, Hypertension, Thyroid Disorder Additional Past Medical History / Comment(s): ANGINA History of Any Multi-Drug Resistant Organisms: None Reported Past Surgical History: Adenoidectomy, Breast Surgery, Cholecystectomy, Heart Catheterization, Orthopedic Surgery, Tonsillectomy Additional Past Surgical History / Comment(s): breast reduction Past Psychological History: No Psychological Hx Reported Smoking Status: Never smoker Past Alcohol Use History: None Reported Past Drug Use History: None Reported - Past Family History Mother History Unknown: Yes Family Medical History: Coronary Artery Disease (CAD), Myocardial Infarction ([place]) General Exam Limitations: no limitations General appearance: alert, in no apparent distress Head exam: Present: atraumatic, normocephalic Eye exam: Present: normal appearance, PERRL ENT exam: Present: mucous membranes moist. Absent: normal oropharynx (patient has mild pharyngeal erythema, no tonsillar swelling or exudate) Respiratory exam: Present: wheezes (good air entry, bronchospastic cough). Absent: rhonchi Cardiovascular Exam: Present: regular rate, normal rhythm GI/Abdominal exam: Present: soft. Absent: distended, tenderness, guarding Extremities exam: Present: normal inspection, normal capillary refill. Absent: pedal edema, calf tenderness Neurological exam: Present: alert, oriented X3, CN II-XII intact. Absent: motor sensory deficit Psychiatric exam: Present: normal affect, normal mood Skin exam: Present: warm, dry, intact. Absent: cyanosis, diaphoretic Course Vital Signs 04/16/19 04/16/19 04/16/19 22:27 23:02 23:10 Temperature 98.4 F Pulse Rate 97 97 94 Respiratory 18 18 18 Rate Blood Pressure 134/74 O2 Sat by Pulse 96 Oximetry Medical Decision Making - Medical Decision Making 63-year-old female with cough and URI symptoms. Lungs are clear with good air entry, there is bronchospastic cough. X-ray performed, negative for focal pn eumonia. Patient is afebrile with stable vitals otherwise. She's given albuterol with significant improvement in cough. She will be prescribed albuterol, Medrol Dosepak. She will follow-up with her primary care physician, return with worsening or changing symptoms. Disposition Clinical Impression: Bronchitis Disposition: HOME SELF-CARE Condition: Good Instructions (If sedation given, give patient instructions): Acute Bronchitis (ED) Prescriptions: methylPREDNISolone Dose Pack [Medrol Dose Pack] 4 mg PO DIRECTED #21 package Albuterol Inhaler [Ventolin Hfa Inhaler] 1 - 2 puff INHALATION Q4HR PRN #1 inhaler PRN Reason: Shortness Of Breath Is patient prescribed a controlled substance at d/c from ED?: No Referrals: Ric Jain MD [Primary Care Provider] - 1-2 days Time of Disposition: 23:18
--- NOTE | 2019-04-16 22:54 | XR ---
EXAMINATION TYPE: XR chest 2V DATE OF EXAM: 04/16/2019 COMPARISON: 10/29/2018 HISTORY: Chest pain TECHNIQUE: 2 views FINDINGS: Heart and mediastinum are normal. Lungs are clear. Diaphragm is normal. Bony thorax appears intact. IMPRESSION: Normal chest. There is improved inspiration compared to old exam.
[2019-04-16 23:10] VITALS: PULSE 94
== END 2019-04-16 23:27 | disposition home or self-care (01) ==
LOC: EC 22:13
DX: J40 Bronchitis, not specified as acute or chronic (principal); J02.9 Acute pharyngitis, unspecified; E78.5 Hyperlipidemia, unspecified; I10 Essential (primary) hypertension; E07.9 Disorder of thyroid, unspecified; I20.9 Angina pectoris, unspecified; Z88.0 Allergy status to penicillin; Z88.1 Allergy status to other antibiotic agents; Z88.5 Allergy status to narcotic agent; Z88.8 Allergy status to other drugs, medicaments and biological substances; Z91.041 Radiographic dye allergy status; Z79.82 Long term (current) use of aspirin; Z79.890 Hormone replacement therapy; Z79.899 Other long term (current) drug therapy; Z90.89 Acquired absence of other organs
CPT/HCPCS: 94640; 71046; 99285; J8540

== ENCOUNTER 2019-04-20 17:40 | Emergency (ER) | payer MEDICARE, BC ==
[2019-04-20 17:46] VITALS: TEMP 98.1
[2019-04-20] MEDS ORDERED: IPRATROPIUM-ALBUTEROL 3 ML NEB INHALATION STA (18:16)
--- NOTE | 2019-04-20 18:19 | ED ---
General Adult HPI - General Chief complaint: Upper Respiratory Infection Stated complaint: Upper Respitory Issues Time Seen by Provider: 04/20/19 17:55 Source: patient, RN notes reviewed Mode of arrival: ambulatory Limitations: no limitations - History of Present Illness Initial comments: 63-year-old female with a past medical history of hyperlipidemia, hypertension, thyroid disorder presents to the emergency department for a chief complaint of cough. Patient has had a cough for the past 8 days. States that she lost her voice about a week ago because of this. Says her was just diagnosed with pneumonia. Patient states she was seen here last week and was told she had bronchitis but wanted to make sure she did not develop into pneumonia. She states she feels the same and is not improving. However she denies any worsening symptoms. Patient states cough is productive. She has a remote smoking history. She denies any significant chest pain or shortness of breath. - Related Data Home Medications Medication Instructions Recorded Confirmed ALPRAZolam [Xanax] 0.125 - 0.25 mg PO DAILY PRN 10/29/18 03/11/19 Aspirin EC [Ecotrin Low Dose] 81 mg PO DAILY 10/29/18 03/11/19 Atorvastatin Calcium [Lipitor] 20 mg PO DAILY 10/29/18 03/11/19 Levothyroxine Sodium [Synthroid] 50 mcg PO MOTUWETHFRSA 10/29/18 03/11/19 Levothyroxine Sodium [Synthroid] 100 mcg PO SENIOR 10/29/18 03/11/19 Metoprolol Tartrate [Lopressor] 25 mg PO HS 10/29/18 03/11/19 Metoprolol Tartrate [Lopressor] 50 mg PO QAM 10/29/18 03/11/19 Ranolazine [Ranexa] 1,000 mg PO BID 10/29/18 03/11/19 amLODIPine BESYLATE [Norvasc] 2.5 mg PO BID 10/29/18 03/11/19 Esomeprazole Magnesium [NexIUM 40 mg PO DAILY 03/11/19 03/11/19 24Hr] Sulfamethox-Tmp 800-160Mg [Bactrim 1 tab PO BID 03/11/19 03/11/19 DS 800-160 mg] Previous Rx's Medication Instructions Recorded Nitroglycerin Sl Tabs [Nitrostat] 0.4 mg SUBLINGUAL Q5M PRN #1 bottle 10/30/18 Albuterol Inhaler [Ventolin Hfa 1 - 2 puff INHALATION Q4HR PRN #1 04/16/19 Inhaler] inhaler methylPREDNISolone Dose Pack 4 mg PO DIRECTED #21 package 04/16/19 [Medrol Dose Pack] Azithromycin [Zithromax Z-pack] 250 mg PO DIRECTED #6 tab 04/20/19 Allergies Allergy/AdvReac Type Severity Reaction Status Date / Time cephalexin [From Keflex] Allergy Anaphylaxis Verified 04/20/19 17:46 clarithromycin [From Biaxin] Allergy Unknown Verified 04/20/19 17:46 codeine Allergy Rash/Hives Verified 04/20/19 17:46 doxycycline Allergy Rash/Hives Verified 04/20/19 17:46 ibandronate sodium Allergy Unknown Verified 04/20/19 17:46 [From Boniva] Iodinated Contrast Media Allergy Chest Pain Verified 04/20/19 17:46 [Iodinated Contrast- Oral and IV Dye] isosorbide [From Imdur] Allergy Confusion,M Verified 04/20/19 17:46 IGRAINE nitrofurantoin Allergy Rash/Hives Verified 04/20/19 17:46 [From Macrobid] Penicillins Allergy Rash/Hives Verified 04/20/19 17:46 Review of Systems ROS Statement: Those systems with pertinent positive or pertinent negative responses have been documented in the HPI. ROS Other: All systems not noted in ROS Statement are negative. Past Medical History Past Medical History: Hyperlipidemia, Hypertension, Thyroid Disorder Additional Past Medical History / Comment(s): ANGINA History of Any Multi-Drug Resistant Organisms: None Reported Past Surgical History: Adenoidectomy, Breast Surgery, Cholecystectomy, Heart Catheterization, Orthopedic Surgery, Tonsillectomy Additional Past Surgical History / Comment(s): breast reduction Past Psychological History: No Psychological Hx Reported Smoking Status: Never smoker Past Alcohol Use History: None Reported Past Drug Use History: None Reported - Past Family History Mother History Unknown: Yes Family Medical History: Coronary Artery Disease (CAD), Myocardial Infarction ([place]) General Exam Limitations: no limitations General appearance: alert, in no apparent distress Head exam: Present: atraumatic, normocephalic, normal inspection Eye exam: Present: normal appearance, PERRL, EOMI. Absent: scleral icterus, conjunctival injection, periorbital swelling ENT exam: Present: normal exam, normal oropharynx, mucous membranes moist, normal external ear exam Neck exam: Present: normal inspection, full ROM. Absent: tenderness, meningismus, lymphadenopathy Respiratory exam: Present: wheezes (Minimal wheezing noted in lower lung michel). Absent: respiratory distress, rales, rhonchi, stridor Cardiovascular Exam: Present: regular rate, normal rhythm, normal heart sounds. Absent: systolic murmur, diastolic murmur, rubs, gallop, clicks Neurological exam: Present: alert Psychiatric exam: Present: normal affect, normal mood Course Vital Signs 04/20/19 04/20/19 04/20/19 17:42 18:39 18:46 Temperature 98.1 F Pulse Rate 84 80 81 Respiratory 20 16 16 Rate Blood Pressure 120/76 O2 Sat by Pulse 96 Oximetry Medical Decision Making - Medical Decision Making Those are stable. Patient is afebrile. She is 96% on room air. This x-ray was repeated, no acute cardiopulmonary process. However given patient's history of her having pneumonia she is very concerned that this could develop. Therefore patient will be placed on antibiotics. Patient has extensive ALLERGIES to antibiotics. She is listed as having an ALLERGY to clarithromycin but does not believe this to be true. She wishes to try a Z-Justo. If she has any signs of ALLERGIC reaction she will return here to the emergency department. Disposition Clinical Impression: Cough Disposition: HOME SELF-CARE Condition: Good Instructions (If sedation given, give patient instructions): Acute Cough (ED) Additional Instructions: Please take antibiotics as directed. Continue steroid and inhaler. Please follow-up with primary care in 1-2 days. Return to the emergency department if you have any worsening symptoms. Prescriptions: Azithromycin [Zithromax Z-pack] 250 mg PO DIRECTED #6 tab Is patient prescribed a controlled substance at d/c from ED?: No Referrals: Ric Jain MD [Primary Care Provider] - 1-2 days Time of Disposition: 20:19
--- NOTE | 2019-04-20 19:31 | XR ---
EXAMINATION TYPE: XR chest 2V DATE OF EXAM: 04/20/2019 COMPARISON: Prior chest x-ray 04/16/2019 HISTORY: Cough and congestion TECHNIQUE: Frontal and lateral views of the chest are obtained. FINDINGS: There is no focal air space opacity, pleural effusion, or pneumothorax seen. The cardiac silhouette size is within normal limits. The osseous structures are intact. IMPRESSION: No acute cardiopulmonary process.
[2019-04-20 20:33] VITALS: BP 120/72; PULSE 82; RESP 20
== END 2019-04-20 20:33 | disposition home or self-care (01) ==
LOC: EC 17:40
DX: R05 Cough (principal); R06.2 Wheezing; R49.1 Aphonia; E78.5 Hyperlipidemia, unspecified; I10 Essential (primary) hypertension; E07.9 Disorder of thyroid, unspecified; I20.9 Angina pectoris, unspecified; Z87.891 Personal history of nicotine dependence; Z88.0 Allergy status to penicillin; Z88.1 Allergy status to other antibiotic agents; Z88.5 Allergy status to narcotic agent; Z88.8 Allergy status to other drugs, medicaments and biological substances; Z91.041 Radiographic dye allergy status; Z79.82 Long term (current) use of aspirin; Z79.890 Hormone replacement therapy; Z79.899 Other long term (current) drug therapy; Z90.89 Acquired absence of other organs
CPT/HCPCS: 71046; 94640; 99283

== ENCOUNTER 2019-08-22 16:47 | Emergency (ER) | payer MEDICARE, BC ==
[2019-08-22 17:01] VITALS: TEMP 98.2
[2019-08-22] MEDS ORDERED: SODIUM CHLORIDE 0.9% 1,000 ML IV STA (17:19)
[2019-08-22 17:29] LABS: Basophils % (A) 0 %; Eosinophils % (A) 1 %; HCT 36.7 % (34.0-46.0); HGB 12.4 gm/dL (11.4-16.0); Lymphocytes # (A) 0.8 k/uL (1.0-4.8); Lymphocytes % (A) 12 %; MCH 32.1 pg (25.0-35.0); MCHC 33.8 g/dL (31.0-37.0); MCV 94.9 fL (80.0-100.0); Monocytes # (A) 0.3 k/uL (0-1.0); Monocytes % (A) 4 %; Neutrophils # (A) 5.1 k/uL (1.3-7.7); Neutrophils % (A) 82 %; Platelet Count 163 k/uL (150-450); RBC 3.87 m/uL (3.80-5.40); RDW 14.1 % (11.5-15.5); WBC 6.2 k/uL (3.8-10.6)
--- NOTE | 2019-08-22 17:36 | ED ---
General Adult HPI - General Chief complaint: Chest Pain Stated complaint: chest pain Time Seen by Provider: 08/22/19 17:00 Source: patient, RN notes reviewed, old records reviewed Mode of arrival: ambulatory Limitations: no limitations - History of Present Illness Initial comments: This is a 63-year-old female who presents emergency Department complaining of feeling tired and lightheaded about 1:00 today. Patient states she laid down for a couple hours when she got up she continue to be tired and lightheaded. Patient states she then started getting a warm sensation across her chest and into her upper body and that would last about 10 minutes and would come back and came back about 5 times within an hour. Patient states she was not short of br eath. Patient denies any recent fever chills or cough. Patient states she has had these symptoms in the past and no one has ever been he would get to the bottom of it. Patient states the last time it happened was about 6 months ago. Patient states last October she had a cardiac catheterization and it was clean. Patient denies any headache. Patient denies any numbness or weakness. Patient denies any abdominal pain patient denies nausea vomiting diarrhea. - Related Data Home Medications Medication Instructions Recorded Confirmed ALPRAZolam [Xanax] 0.125 - 0.25 mg PO DAILY PRN 10/29/18 03/11/19 Aspirin EC [Ecotrin Low Dose] 81 mg PO DAILY 10/29/18 03/11/19 Atorvastatin Calcium [Lipitor] 20 mg PO DAILY 10/29/18 03/11/19 Levothyroxine Sodium [Synthroid] 50 mcg PO MOTUWETHFRSA 10/29/18 03/11/19 Levothyroxine Sodium [Synthroid] 100 mcg PO SENIOR 10/29/18 03/11/19 Metoprolol Tartrate [Lopressor] 25 mg PO HS 10/29/18 03/11/19 Metoprolol Tartrate [Lopressor] 50 mg PO QAM 10/29/18 03/11/19 Ranolazine [Ranexa] 1,000 mg PO BID 10/29/18 03/11/19 amLODIPine BESYLATE [Norvasc] 2.5 mg PO BID 10/29/18 03/11/19 Esomeprazole Magnesium [NexIUM 40 mg PO DAILY 03/11/19 03/11/19 24Hr] Sulfamethox-Tmp 800-160Mg [Bactrim 1 tab PO BID 03/11/19 03/11/19 DS 800-160 mg] Previous Rx's Medication Instructions Recorded Nitroglycerin Sl Tabs [Nitrostat] 0.4 mg SUBLINGUAL Q5M PRN #1 bottle 10/30/18 Albuterol Inhaler (Mhu) [Ventolin 1 - 2 puff INHALATION Q4HR PRN #1 04/16/19 Hfa Inhaler (Mhu)] inhaler methylPREDNISolone Dose Pack 4 mg PO DIRECTED #21 package 04/16/19 [Medrol Dose Pack] Azithromycin [Zithromax Z-pack] 250 mg PO DIRECTED #6 tab 04/20/19 Allergies Allergy/AdvReac Type Severity Reaction Status Date / Time cephalexin [From Keflex] Allergy Anaphylaxis Verified 04/20/19 17:46 clarithromycin [From Biaxin] Allergy Unknown Verified 04/20/19 17:46 codeine Allergy Rash/Hives Verified 04/20/19 17:46 doxycycline Allergy Rash/Hives Verified 04/20/19 17:46 ibandronate sodium Allergy Unknown Verified 04/20/19 17:46 [From Boniva] Iodinated Contrast Media Allergy Chest Pain Verified 04/20/19 17:46 [Iodinated Contrast- Oral and IV Dye] isosorbide [From Imdur] Allergy Confusion,M Verified 04/20/19 17:46 IGRAINE nitrofurantoin Allergy Rash/Hives Verified 04/20/19 17:46 [From Macrobid] Penicillins Allergy Rash/Hives Verified 04/20/19 17:46 Review of Systems ROS Statement: Those systems with pertinent positive or pertinent negative responses have been documented in the HPI. ROS Other: All systems not noted in ROS Statement are negative. Past Medical History Past Medical History: Hyperlipidemia, Hypertension, Thyroid Disorder Additional Past Medical History / Comment(s): ANGINA History of Any Multi-Drug Resistant Organisms: None Reported Past Surgical History: Adenoidectomy, Breast Surgery, Cholecystectomy, Heart Catheterization, Orthopedic Surgery, Tonsillectomy Additional Past Surgical History / Comment(s): breast reduction Past Psychological History: No Psychological Hx Reported Smoking Status: Never smoker Past Alcohol Use History: None Reported Past Drug Use History: None Reported - Past Family History Mother History Unknown: Yes Family Medical History: Coronary Artery Disease (CAD), Myocardial Infarction ([place]) General Exam - General Exam Comments Initial Comments: GENERAL: Patient is well-developed and well-nourished. Patient is nontoxic and well- hydrated and is in mild distress ENT: Neck is soft and supple. No significant lymphadenopathy is noted. Oropharynx is clear. Moist mucous membranes. Neck has full range of motion without eliciting any pain. EYES: The sclera were anicteric and conjunctiva were pink and moist. Extraocular movements were intact and pupils were equal round and reactive to light. Eyelids were unremarkable. PULMONARY: Unlabored respirations. Good breath sounds bilaterally. No audible rales rhonchi or wheezing was noted. CARDIOVASCULAR: There is a regular rate and rhythm without any murmurs gallops or rubs. ABDOMEN: Soft and nontender with normal bowel sounds. No palpable organomegaly was noted. There is no palpable pulsatile mass. SKIN: Skin is clear with no lesions or rashes and otherwise unremarkable. NEUROLOGIC: Patient is alert and oriented x3. Cranial nerves II through XII are grossly intact. Motor and sensory are also intact. Normal speech, volume and content. Symmetrical smile. MUSCULOSKELETAL: Normal extremities with adequate strength and full range of motion. No lower extremity swelling or edema. No calf tenderness. LYMPHATICS: No significant lymphadenopathy is noted PSYCHIATRIC: Normal psychiatric evaluation. Limitations: no limitations Course Vital Signs 08/22/19 08/22/19 08/22/19 16:58 17:00 17:30 Temperature 98.2 F Pulse Rate 82 81 78 Pulse Rate [ Sitting] Pulse Rate [ Standing] Pulse Rate [ Supine] Respiratory 18 18 18 Rate Blood Pressure 134/76 134/76 134/76 Blood Pressure [Sitting] Blood Pressure [Standing] Blood Pressure [Supine] O2 Sat by Pulse 98 98 96 Oximetry 08/22/19 08/22/19 18:00 18:46 Temperature Pulse Rate 79 Pulse Rate [ 78 Sitting] Pulse Rate [ 84 Standing] Pulse Rate [ 77 Supine] Respiratory 16 Rate Blood Pressure 124/76 Blood Pressure 130/75 [Sitting] Blood Pressure 133/81 [Standing] Blood Pressure 123/77 [Supine] O2 Sat by Pulse 97 Oximetry Medical Decision Making - Medical Decision Making EKG shows normal sinus rhythm at 80 bpm NV interval 258 QRS is 90 QT interval 394 QTC is 454. Patient's EKG shows no ST segment elevation or depression. - Lab Data Result diagrams: 08/22/19 17:05 08/22/19 17:05 Lab Results 08/22/19 08/22/19 08/22/19 Range/Units 17:05 17:05 17:05 WBC 6.2 (3.8-10.6) k/uL RBC 3.87 (3.80-5.40) m/uL Hgb 12.4 (11.4-16.0) gm/dL Hct 36.7 (34.0-46.0) % MCV 94.9 (80.0-100.0) fL MCH 32.1 (25.0-35.0) pg MCHC 33.8 (31.0-37.0) g/dL RDW 14.1 (11.5-15.5) % Plt Count 163 (150-450) k/uL Neutrophils % 82 % Lymphocytes % 12 % Monocytes % 4 % Eosinophils % 1 % Basophils % 0 % Neutrophils # 5.1 (1.3-7.7) k/uL Lymphocytes # 0.8 L (1.0-4.8) k/uL Monocytes # 0.3 (0-1.0) k/uL Eosinophils # 0.0 (0-0.7) k/uL Basophils # 0.0 (0-0.2) k/uL PT 10.2 (9.0-12.0) sec INR 1.0 (<1.2) APTT 21.4 L (22.0-30.0) sec Sodium 139 (137-145) mmol/L Potassium 4.0 (3.5-5.1) mmol/L Chloride 103 (98-107) mmol/L Carbon Dioxide 25 (22-30) mmol/L Anion Gap 11 mmol/L BUN 16 (7-17) mg/dL Creatinine 0.79 (0.52-1.04) mg/dL Est GFR (CKD-EPI)AfAm >90 (>60 ml/min/1.73 sqM) Est GFR (CKD-EPI)NonAf 80 (>60 ml/min/1.73 sqM) Glucose 133 H (74-99) mg/dL Calcium 9.5 (8.4-10.2) mg/dL Magnesium 2.0 (1.6-2.3) mg/dL Total Bilirubin 0.3 (0.2-1.3) mg/dL AST 28 (14-36) U/L ALT 28 (4-34) U/L Alkaline Phosphatase 81 (38-126) U/L Troponin I (0.000-0.034) ng/mL Total Protein 7.0 (6.3-8.2) g/dL Albumin 4.5 (3.5-5.0) g/dL TSH 3.180 (0.465-4.680) mIU/L Urine Color Urine Appearance (Clear) Urine pH (5.0-8.0) Ur Specific Gap (1.001-1.035) Urine Protein (Negative) Urine Glucose (UA) (Negative) Urine Ketones (Negative) Urine Blood (Negative) Urine Nitrite (Negative) Urine Bilirubin (Negative) Urine Urobilinogen (<2.0) mg/dL Ur Leukocyte Esterase (Negative) Urine RBC (0-5) /hpf Urine WBC (0-5) /hpf Urine Mucus (None) /hpf 08/22/19 08/22/19 Range/Units 17:05 19:20 WBC (3.8-10.6) k/uL RBC (3.80-5.40) m/uL Hgb (11.4-16.0) gm/dL Hct (34.0-46.0) % MCV (80.0-100.0) fL MCH (25.0-35.0) pg MCHC (31.0-37.0) g/dL RDW (11.5-15.5) % Plt Count (150-450) k/uL Neutrophils % % Lymphocytes % % Monocytes % % Eosinophils % % Basophils % % Neutrophils # (1.3-7.7) k/uL Lymphocytes # (1.0-4.8) k/uL Monocytes # (0-1.0) k/uL Eosinophils # (0-0.7) k/uL Basophils # (0-0.2) k/uL PT (9.0-12.0) sec INR (<1.2) APTT (22.0-30.0) sec Sodium (137-145) mmol/L Potassium (3.5-5.1) mmol/L Chloride (98-107) mmol/L Carbon Dioxide (22-30) mmol/L Anion Gap mmol/L BUN (7-17) mg/dL Creatinine (0.52-1.04) mg/dL Est GFR (CKD-EPI)AfAm (>60 ml/min/1.73 sqM) Est GFR (CKD-EPI)NonAf (>60 ml/min/1.73 sqM) Glucose (74-99) mg/dL Calcium (8.4-10.2) mg/dL Magnesium (1.6-2.3) mg/dL Total Bilirubin (0.2-1.3) mg/dL AST (14-36) U/L ALT (4-34) U/L Alkaline Phosphatase (38-126) U/L Troponin I <0.012 (0.000-0.034) ng/mL Total Protein (6.3-8.2) g/dL Albumin (3.5-5.0) g/dL TSH (0.465-4.680) mIU/L Urine Color Yellow Urine Appearance Clear (Clear) Urine pH 7.0 (5.0-8.0) Ur Specific Gap 1.011 (1.001-1.035) Urine Protein Negative (Negative) Urine Glucose (UA) Negative (Negative) Urine Ketones Negative (Negative) Urine Blood Negative (Negative) Urine Nitrite Negative (Negative) Urine Bilirubin Negative (Negative) Urine Urobilinogen <2.0 (<2.0) mg/dL Ur Leukocyte Esterase Small H (Negative) Urine RBC 1 (0-5) /hpf Urine WBC 2 (0-5) /hpf Urine Mucus Rare H (None) /hpf Disposition Clinical Impression: Lightheaded Disposition: HOME SELF-CARE Instructions (If sedation given, give patient instructions): Lightheadedness (ED) Is patient prescribed a controlled substance at d/c from ED?: No Referrals: Ric Jain MD [Primary Care Provider] - 1-2 days Time of Disposition: 15:32
[2019-08-22 17:37] LABS: ALT 28 U/L (4-34); AST 28 U/L (14-36); African American GFR (CKD) >90 (>60 ml/min/1.73 sqM); Albumin 4.5 g/dL (3.5-5.0); Alkaline Phosphatase 81 U/L (38-126); Anion Gap 11 mmol/L; Blood Urea Nitrogen 16 mg/dL (7-17); Calcium 9.5 mg/dL (8.4-10.2); Carbon Dioxide 25 mmol/L (22-30); Chloride 103 mmol/L (98-107); Glucose 133 mg/dL (74-99); Non-African American GFR(CKD) 80 (>60 ml/min/1.73 sqM); Sodium 139 mmol/L (137-145); Total Bilirubin 0.3 mg/dL (0.2-1.3)
--- NOTE | 2019-08-22 17:47 | XR ---
EXAMINATION TYPE: XR chest 2V DATE OF EXAM: 08/22/2019 COMPARISON: 04/20/2019 HISTORY: Chest pain TECHNIQUE: Frontal and lateral views of the chest are obtained. FINDINGS: There is no focal air space opacity, pleural effusion, or pneumothorax seen. The cardiac silhouette size is within normal limits. The osseous structures are intact. IMPRESSION: No acute cardiopulmonary process.
[2019-08-22 18:00] LABS: Prothrombin Time 10.2 sec (9.0-12.0)
[2019-08-22 18:09] LABS: Partial Thromboplastin Time 21.4 sec (22.0-30.0)
[2019-08-22 18:43] VITALS: RESP 16
[2019-08-22 18:50] VITALS: BP 123/77; PULSE 77
[2019-08-22 19:46] LABS: Appearance,Urine Clear (Clear); Bilirubin,Urine Negative (Negative); Blood,Urine Negative (Negative); Color,Urine Yellow; Glucose,Urine (UA) Negative (Negative); Ketones,Urine Negative (Negative); Leukocyte Esterase,Urine Small (Negative); Mucus,Urine Rare /hpf; Nitrite,Urine Negative (Negative); Protein,Urine Negative (Negative); RBC,Urine 1 /hpf (0-5); Specific Gravity,Urine 1.011 (1.001-1.035); Urobilinogen,Urine <2.0 mg/dL (<2.0); WBC,Urine 2 /hpf (0-5)
== END 2019-08-22 19:48 | disposition home or self-care (01) ==
LOC: EC 16:47
DX: R42 Dizziness and giddiness (principal); R07.9 Chest pain, unspecified; I10 Essential (primary) hypertension; E78.5 Hyperlipidemia, unspecified; E07.9 Disorder of thyroid, unspecified; Z79.82 Long term (current) use of aspirin; Z79.899 Other long term (current) drug therapy; Z79.890 Hormone replacement therapy; Z88.0 Allergy status to penicillin; Z88.1 Allergy status to other antibiotic agents; Z88.5 Allergy status to narcotic agent; Z88.8 Allergy status to other drugs, medicaments and biological substances; Z91.041 Radiographic dye allergy status
CPT/HCPCS: 36415; 71046; 80053; 81001; 83735; 84443; 84484; 85025; 85610; 85730; 93005; 96360; 99285

== ENCOUNTER → 2020-03-12 | Outpatient (CLI) | payer MEDICARE, BC ==
--- NOTE | 2020-03-12 12:41 | XR ---
Right wrist HISTORY: Right wrist pain 4 views of the right wrist There is degenerative change of the carpal metacarpal joint of the first digit, intercarpal row later ally. There is associated sclerosis, joint space loss. Question some joint space widening of the scap holunate joint, interval is increased. Bone mineralization is reduced. No fracture or dislocation. impression: Osteoarthritis. Scapholunate dissociation is present, wrist MRI may be of benefit
== END | disposition home or self-care (01) ==
LOC: RADXRMAIN 11:58
PROVIDERS: ATTEND Family Medicine
DX: M19.031 Primary osteoarthritis, right wrist (principal); S63.001A Unspecified subluxation of right wrist and hand, initial encounter

== ENCOUNTER → 2020-06-09 | Outpatient (CLI) | payer MEDICARE, BC ==
--- NOTE | 2020-06-12 10:42 | MM ---
Reason for exam: screening (asymptomatic). Last mammogram was performed 6 years and 11 months ago. History: Patient is postmenopausal. Family history of breast cancer in mother at age 76. Reductions of both breasts, August 2011. Physical Findings: A clinical breast exam by your physician is recommended on an annual basis and results should be correlated with mammographic findings. MG 3D Screening Mammo W/Cad Bilateral CC and MLO view(s) were taken. Prior study comparison: November 29, 2017, mammogram. November 25, 2016, mammogram. The breast tissue is heterogeneously dense. This may lower the sensitivity of mammography. Reduction mammoplasty changes. No significant changes when compared with prior studies. ASSESSMENT: Benign, BI-RAD 2 RECOMMENDATION: Routine screening mammogram of both breasts in 1 year.
== END | disposition home or self-care (01) ==
LOC: RADMAMWWP 15:13
PROVIDERS: ATTEND Family Medicine
DX: Z12.31 Encounter for screening mammogram for malignant neoplasm of breast (principal)
CPT/HCPCS: 77063; 77067

== ENCOUNTER 2020-09-27 14:05 | Emergency (ER) | payer MEDICARE, BC ==
[2020-09-27 14:14] VITALS: RESP 18; TEMP 98.8
[2020-09-27] MEDS ORDERED: SODIUM CHLORIDE 0.9% 500 ML 500 ML IV ONE (14:45)
[2020-09-27] MEDS ORDERED: ACETAMINOPHEN TAB 500 MG TAB PO STA (14:45)
[2020-09-27] MEDS ORDERED: methylPREDNISolone SOD SUCCI 125 MG/2 ML VIAL IV STA (14:47)
[2020-09-27] MEDS ORDERED: diphenhydrAMINE 50 MG/ML 1 ML VIAL IVP STA (14:47)
[2020-09-27] MEDS ORDERED: FAMOTIDINE 20 MG/2 ML VIAL IV STA (14:47)
[2020-09-27 14:54] LABS: Basophils % (A) 0 %; Eosinophils % (A) 1 %; HCT 35.7 % (34.0-46.0); HGB 12.5 gm/dL (11.4-16.0); Lymphocytes # (A) 0.7 k/uL (1.0-4.8); Lymphocytes % (A) 10 %; MCH 32.9 pg (25.0-35.0); MCV 94.1 fL (80.0-100.0); Mean Platelet Volume 6.7; Monocytes # (A) 0.3 k/uL (0-1.0); Monocytes % (A) 5 %; Neutrophils # (A) 5.6 k/uL (1.3-7.7); Neutrophils % (A) 83 %; Platelet Count 160 k/uL (150-450); RBC 3.79 m/uL (3.80-5.40); RDW 14.1 % (11.5-15.5); WBC 6.7 k/uL (3.8-10.6)
--- NOTE | 2020-09-27 14:57 | ED ---
General Adult HPI - General Chief complaint: Fall Stated complaint: Fall Time Seen by Provider: 09/27/20 14:26 Source: patient, RN notes reviewed Mode of arrival: EMS Limitations: no limitations - History of Present Illness Initial comments: 64-year-old female with a past medical history of hyperlipidemia, hypertension, thyroid disorder presents to the emergency room for a chief complaint of fall. Patient was up on the counters trying to put a window screen and a window when she fell about 4 feet the ground. She fell on her left side. Patient reports she is having left rib pain as well as left hip pain. States she could not bear weight on the left hip. She did hit her head and did vomit once. She did not lose consciousness. Patient does not take blood thinners.Patient has no other complaints at this time including shortness of breath, chest pain, abdominal pain, headache, or visual changes. - Related Data Home Medications Medication Instructions Recorded Confirmed ALPRAZolam [Xanax] 0.125 - 0.25 mg PO DAILY PRN 10/29/18 03/11/19 Aspirin EC [Ecotrin Low Dose] 81 mg PO DAILY 10/29/18 03/11/19 Atorvastatin Calcium [Lipitor] 20 mg PO DAILY 10/29/18 03/11/19 Levothyroxine Sodium [Synthroid] 50 mcg PO MOTUWETHFRSA 10/29/18 03/11/19 Levothyroxine Sodium [Synthroid] 100 mcg PO SENIOR 10/29/18 03/11/19 Metoprolol Tartrate [Lopressor] 25 mg PO HS 10/29/18 03/11/19 Metoprolol Tartrate [Lopressor] 50 mg PO QAM 10/29/18 03/11/19 Ranolazine [Ranexa] 1,000 mg PO BID 10/29/18 03/11/19 amLODIPine BESYLATE [Norvasc] 2.5 mg PO BID 10/29/18 03/11/19 Esomeprazole Magnesium [NexIUM 40 mg PO DAILY 03/11/19 03/11/19 24Hr] Sulfamethox-Tmp 800-160Mg [Bactrim 1 tab PO BID 03/11/19 03/11/19 DS 800-160 mg] Previous Rx's Medication Instructions Recorded Nitroglycerin Sl Tabs [Nitrostat] 0.4 mg SUBLINGUAL Q5M PRN #1 bottle 10/30/18 Albuterol Inhaler (Mhu) [Ventolin 1 - 2 puff INHALATION Q4HR PRN #1 04/16/19 Hfa Inhaler (Mhu)] inhaler methylPREDNISolone Dose Pack 4 mg PO DIRECTED #21 package 04/16/19 [Medrol Dose Pack] Azithromycin [Zithromax Z-pack (6 250 mg PO DIRECTED #6 tab 04/20/19 tabs)] HYDROcodone/APAP 5-325MG [[place] 1 tab PO Q6HR PRN #10 tab 09/27/20 5-325] Allergies Allergy/AdvReac Type Severity Reaction Status Date / Time cephalexin [From Keflex] Allergy Anaphylaxis Verified 04/20/19 17:46 clarithromycin [From Biaxin] Allergy Unknown Verified 04/20/19 17:46 codeine Allergy Rash/Hives Verified 04/20/19 17:46 doxycycline Allergy Rash/Hives Verified 04/20/19 17:46 ibandronate sodium Allergy Unknown Verified 04/20/19 17:46 [From Boniva] Iodinated Contrast Media Allergy Chest Pain Verified 04/20/19 17:46 [Iodinated Contrast- Oral and IV Dye] isosorbide [From Imdur] Allergy Confusion,M Verified 04/20/19 17:46 IGRAINE nitrofurantoin Allergy Rash/Hives Verified 04/20/19 17:46 [From Macrobid] Penicillins Allergy Rash/Hives Verified 04/20/19 17:46 chlora prep Allergy Itching Uncoded 09/27/20 14:15 Review of Systems ROS Statement: Those systems with pertinent positive or pertinent negative responses have been documented in the HPI. ROS Other: All systems not noted in ROS Statement are negative. Past Medical History Past Medical History: Hyperlipidemia, Hypertension, Thyroid Disorder Additional Past Medical History / Comment(s): ANGINA History of Any Multi-Drug Resistant Organisms: None Reported Past Surgical History: Adenoidectomy, Breast Surgery, Cholecystectomy, Heart Catheterization, Orthopedic Surgery, Tonsillectomy Additional Past Surgical History / Comment(s): breast reduction Past Psychological History: No Psychological Hx Reported Smoking Status: Former smoker Past Alcohol Use History: None Reported Past Drug Use History: None Reported - Past Family History Mother History Unknown: Yes Family Medical History: Coronary Artery Disease (CAD), Myocardial Infarction ([place]) General Exam Limitations: no limitations General appearance: alert, in no apparent distress Head exam: Absent: atraumatic (small contusion L frontal scalp) Eye exam: Present: normal appearance, PERRL, EOMI. Absent: scleral icterus, conjunctival injection, periorbital swelling ENT exam: Present: normal exam, mucous membranes moist Neck exam: Present: normal inspection, full ROM. Absent: tenderness, meningismus, lymphadenopathy Respiratory exam: Present: normal lung sounds bilaterally, chest wall tenderness (L lateral rib tenderness around rib 8). Absent: respiratory distress, wheezes, rales, rhonchi, stridor Cardiovascular Exam: Present: regular rate, normal rhythm, normal heart sounds. Absent: systolic murmur, diastolic murmur, rubs, gallop, clicks GI/Abdominal exam: Present: soft, normal bowel sounds. Absent: distended, tenderness, guarding, rebound, rigid Extremities exam: Present: normal capillary refill (Capillary refill is 2 seconds, DP pulse 2+ left lower extremity). Absent: full ROM ( is about 25 flexion of the left hip, extension to neutral position.) Neurological exam: Present: alert, oriented X3 Course Vital Signs 09/27/20 09/27/20 09/27/20 14:06 15:29 17:10 Temperature 98.8 F Pulse Rate 90 90 76 Respiratory 18 18 18 Rate Blood Pressure 135/45 120/60 122/64 O2 Sat by Pulse 98 98 95 Oximetry - Reevaluation(s) Reevaluation #1: 09/27/20 14:51 I did offer pain medication for patient in case there was a long bone fracture of the left femur however she refuses this stating she does not do well with pain medication and only wants Tylenol. Reevaluation #2: 09/27/20 16:[address] Burgos who will call back with further recommendations after reviewing the films. Medical Decision Making - Medical Decision Making Vitals are stable. HPI and physical exam as documented. Patient does have some left rib tenderness without ecchymosis. No lumbar spine tenderness. Patient does have pain in the left hip. Neurovascular status intact left lower extremity. CT chest abdomen and pelvis was obtained given fall from 4 feet. There is a nondisplaced chip fracture of the left acetabulum involving the anterior labrum. No femoral fracture. No rib fracture. CT brain and C-spine negative for acute fracture. No evidence for intracranial hemorrhage. I did speak with Dr. Burgos who was comfortable with either discharge the patient with limited weightbearing on that leg with a walker or admission. I had a lengthy discussion with patient. She is with her daughter. They both prefer discharge. They report they will get her walker today and will not have her bear weight on that leg. They will follow-up in the office with Dr. Burgos on Monday or per his request. They will return here for any worsening symptoms. I did also discuss incidental finding of possible lacunar infarct, recommend that they follow up with primary care for this. - Lab Data Result diagrams: 09/27/20 14:48 09/27/20 14:48 Lab Results 09/27/20 09/27/20 09/27/20 Range/Units 14:48 14:48 14:48 WBC 6.7 (3.8-10.6) k/uL RBC 3.79 L (3.80-5.40) m/uL Hgb 12.5 (11.4-16.0) gm/dL Hct 35.7 (34.0-46.0) % MCV 94.1 (80.0-100.0) fL MCH 32.9 (25.0-35.0) pg MCHC 35.0 (31.0-37.0) g/dL RDW 14.1 (11.5-15.5) % Plt Count 160 (150-450) k/uL MPV 6.7 Neutrophils % 83 % Lymphocytes % 10 % Monocytes % 5 % Eosinophils % 1 % Basophils % 0 % Neutrophils # 5.6 (1.3-7.7) k/uL Lymphocytes # 0.7 L (1.0-4.8) k/uL Monocytes # 0.3 (0-1.0) k/uL Eosinophils # 0.0 (0-0.7) k/uL Basophils # 0.0 (0-0.2) k/uL PT 10.3 (9.0-12.0) sec INR 1.0 (<1.2) APTT 21.9 L (22.0-30.0) sec Sodium 138 (137-145) mmol/L Potassium 4.3 (3.5-5.1) mmol/L Chloride 105 (98-107) mmol/L Carbon Dioxide 24 (22-30) mmol/L Anion Gap 9 mmol/L BUN 16 (7-17) mg/dL Creatinine 0.86 (0.52-1.04) mg/dL Est GFR (CKD-EPI)AfAm 82 (>60 ml/min/1.73 sqM) Est GFR (CKD-EPI)NonAf 71 (>60 ml/min/1.73 sqM) Glucose 122 H (74-99) mg/dL Calcium 9.4 (8.4-10.2) mg/dL Total Bilirubin 0.3 (0.2-1.3) mg/dL AST 28 (14-36) U/L ALT 30 (4-34) U/L Alkaline Phosphatase 74 (38-126) U/L Total Protein 6.6 (6.3-8.2) g/dL Albumin 4.4 (3.5-5.0) g/dL Urine Color Urine Appearance (Clear) Urine pH (5.0-8.0) Ur Specific [place] (1.001-1.035) Urine Protein (Negative) Urine Glucose (UA) (Negative) Urine Ketones (Negative) Urine Blood (Negative) Urine Nitrite (Negative) Urine Bilirubin (Negative) Urine Urobilinogen (<2.0) mg/dL Ur Leukocyte Esterase (Negative) Urine RBC (0-5) /hpf Urine WBC (0-5) /hpf Ur Squamous Epith Cells (0-4) /hpf Urine Bacteria (None) /hpf Hyaline Casts (0-2) /lpf Urine Mucus (None) /hpf 09/27/ Range/Units 14:48 WBC (3.8-10.6) k/uL RBC (3.80-5.40) m/uL Hgb (11.4-16.0) gm/dL Hct (34.0-46.0) % MCV (80.0-100.0) fL MCH (25.0-35.0) pg MCHC (31.0-37.0) g/dL RDW (11.5-15.5) % Plt Count (150-450) k/uL MPV Neutrophils % % Lymphocytes % % Monocytes % % Eosinophils % % Basophils % % Neutrophils # (1.3-7.7) k/uL Lymphocytes # (1.0-4.8) k/uL Monocytes # (0-1.0) k/uL Eosinophils # (0-0.7) k/uL Basophils # (0-0.2) k/uL PT (9.0-12.0) sec INR (<1.2) APTT (22.0-30.0) sec Sodium (137-145) mmol/L Potassium (3.5-5.1) mmol/L Chloride (98-107) mmol/L Carbon Dioxide (22-30) mmol/L Anion Gap mmol/L BUN (7-17) mg/dL Creatinine (0.52-1.04) mg/dL Est GFR (CKD-EPI)AfAm (>60 ml/min/1.73 sqM) Est GFR (CKD-EPI)NonAf (>60 ml/min/1.73 sqM) Glucose (74-99) mg/dL Calcium (8.4-10.2) mg/dL Total Bilirubin (0.2-1.3) mg/dL AST (14-36) U/L ALT (4-34) U/L Alkaline Phosphatase (38-126) U/L Total Protein (6.3-8.2) g/dL Albumin (3.5-5.0) g/dL Urine Color Yellow Urine Appearance Clear (Clear) Urine pH 5.5 (5.0-8.0) Ur Specific [place] 1.014 (1.001-1.035) Urine Protein Negative (Negative) Urine Glucose (UA) Negative (Negative) Urine Ketones Negative (Negative) Urine Blood Negative (Negative) Urine Nitrite Negative (Negative) Urine Bilirubin Negative (Negative) Urine Urobilinogen <2.0 (<2.0) mg/dL Ur Leukocyte Esterase Moderate H (Negative) Urine RBC <1 (0-5) /hpf Urine WBC 4 (0-5) /hpf Ur Squamous Epith Cells <1 (0-4) /hpf Urine Bacteria Rare H (None) /hpf Hyaline Casts 17 H (0-2) /lpf Urine Mucus Rare H (None) /hpf Disposition Clinical Impression: Acetabulum fracture, left, Fall, Head injury Disposition: HOME SELF-CARE Condition: Good Instructions (If sedation given, give patient instructions): Hip Fracture (ED) Additional Instructions: Please take Tylenol 3 as needed for pain. Use walker to only maintain less than 50% weightbearing on the left leg. Follow-up with orthopedics by calling first thing Monday for an appointment. If you're having worsening symptoms return to the emergency room. Is patient prescribed a controlled substance at d/c from ED?: Yes When asked, does pt state using other controlled substances?: No If prescribed controlled substance>3 days was MAPS reviewed?: Prescribed <3 Days If opioid is for acute pain is fill amount 7 days or less?: Yes If Rx opioid, was Start Talking consent form obtained?: Yes Referrals: Kasey Naqvi III, MD [Primary Care Provider] - 1-2 days Leo Burgos MD [STAFF PHYSICIAN] - 1-2 days Time of Disposition: 17:25
[2020-09-27 15:05] LABS: Albumin 4.4 g/dL (3.5-5.0); Calcium 9.4 mg/dL (8.4-10.2); Potassium 4.3 mmol/L (3.5-5.1); Total Bilirubin 0.3 mg/dL (0.2-1.3); Total Protein 6.6 g/dL (6.3-8.2)
[2020-09-27 15:21] LABS: Prothrombin Time 10.3 sec (9.0-12.0)
[2020-09-27 15:22] LABS: Partial Thromboplastin Time 21.9 sec (22.0-30.0)
[2020-09-27 15:47] LABS: Appearance,Urine Clear (Clear); Bacteria,Urine Rare /hpf; Bilirubin,Urine Negative (Negative); Blood,Urine Negative (Negative); Color,Urine Yellow; Glucose,Urine (UA) Negative (Negative); Hyaline Casts,Urine 17 /lpf (0-2); Ketones,Urine Negative (Negative); Leukocyte Esterase,Urine Moderate (Negative); Mucus,Urine Rare /hpf; Nitrite,Urine Negative (Negative); PH, Urine 5.5 (5.0-8.0); Protein,Urine Negative (Negative); RBC,Urine <1 /hpf (0-5); Specific Gravity,Urine 1.014 (1.001-1.035); Squamous Epithelial Cell,Urine <1 /hpf (0-4); Urobilinogen,Urine <2.0 mg/dL (<2.0); WBC,Urine 4 /hpf (0-5)
--- NOTE | 2020-09-27 16:02 | CT ---
EXAMINATION TYPE: CT ChestAbdPelvis w con DATE OF EXAM: 09/27/2020 COMPARISON: 03/11/2019 HISTORY: Fall, left rib/flank/hip pain. CT DLP: 1010.3 mGycm Automated exposure control for dose reduction was used. CONTRAST: Performed with IV Contrast, patient injected with 100ml mL of Isovue 300. Images obtained from the thoracic inlet to the floor the pelvis with IV contrast. There is mild subsegmental atelectasis at the lung bases. There is no pleural effusion or pneumothora x. There is no mediastinal adenopathy. There are no hilar masses. Heart size is fairly normal. There is no pericardial effusion. There is no aortic aneurysm or dissection. Liver spleen stomach pancreas appear intact. The bile ducts are not dilated. Gallbladder appears abse nt. There is no adrenal mass. Kidneys show satisfactory contrast opacification. There is no hydronephrosi s. Delayed images show normal renal excretion. There is no retroperitoneal adenopathy. Bladder disten ds smoothly. There is no inguinal hernia. There is no free fluid in the pelvis. There is no mesenteric edema. There is no ascites or free air. There is no bowel obstruction. There is a first-degree L4-5 spondylolisthesis. There is no spondylolysis. Thoracic and lumbar verteb ra show no compression fracture. There is degenerative disc space narrowing in the lower lumbar spine . Pelvic ring is intact. Shoulder joints appear intact. I see no evidence of a rib fracture. There i s slight irregular appearance of the anterior left acetabulum suggestive of a nondisplaced chip fract ure. This appears new compared to old exam. IMPRESSION: There is nondisplaced chip fracture of the left acetabulum involving the anterior labrum. No femoral fracture. No rib fracture. There is some mild fibrotic changes and atelectasis at the lung bases that is increased compared to o ld exam.
--- NOTE | 2020-09-27 16:06 | XR ---
EXAMINATION TYPE: XR Hip LT and AP Pelvis DATE OF EXAM: 09/27/2020 COMPARISON: NONE HISTORY: Pain. Fall. TECHNIQUE: 3 views FINDINGS: Pelvic ring is intact. Proximal left femur and hip joint appear intact. There is no sign of hip dysplasia. Sacroiliac joints are intact. IMPRESSION: No fracture seen.
--- NOTE | 2020-09-27 16:09 | CT ---
EXAMINATION TYPE: CT brain margarito peters con DATE OF EXAM: 09/27/2020 COMPARISON: None HISTORY: Fall. CT DLP: 1308.5 mGycm Automated exposure control for dose reduction was used. Ventricles have normal size. There is no mass effect nor midline shift. There is no sign of intracran ial hemorrhage. Calvarium is intact. There is no evidence of cerebral edema. There is 11 mm hypodense focus in the right posterior parietal lobe at the laureano-white matter junction . The cervical vertebra have normal alignment. Posterior elements are intact. Facet joints are intact. There is some degenerative disc space narrowing at C5-6 and C6-7. There is normal aeration of the mas toid sinuses. Skull base is intact. IMPRESSION: Mild degenerative changes in the lower cervical spine. No fracture. No evidence of intracranial hemorrhage. Hypodense focus right parietal lobe could be a lacunar infarc t.
[2020-09-27 17:12] VITALS: BP 122/64; PULSE 76
[2020-09-27] MEDS ORDERED: ACET/COD 300 MG/30 MG STARTER PACK 6 TAB BTL PO STA (17:26)
== END 2020-09-27 17:54 | disposition home or self-care (01) ==
LOC: EC 14:05
DX: S32.402A Unspecified fracture of left acetabulum, initial encounter for closed fracture (principal); S09.90XA Unspecified injury of head, initial encounter; M50.322 Other cervical disc degeneration at C5-C6 level; E78.5 Hyperlipidemia, unspecified; I10 Essential (primary) hypertension; E07.9 Disorder of thyroid, unspecified; Z87.891 Personal history of nicotine dependence; Z79.82 Long term (current) use of aspirin; Z79.890 Hormone replacement therapy; Z82.49 Family history of ischemic heart disease and other diseases of the circulatory system; Z88.0 Allergy status to penicillin; Z88.1 Allergy status to other antibiotic agents; Z88.8 Allergy status to other drugs, medicaments and biological substances; W17.89XA Other fall from one level to another, initial encounter
CPT/HCPCS: 36415; 80053; 85025; 85610; 85730; 81001; 73502; 72125; 70450; 71260; 74177; 99284; 96374; 96375 ×2; J1200; J2930; Q9967

== ENCOUNTER → 2021-04-22 | Outpatient (CLI) | payer MEDICARE, BC ==
--- NOTE | 2021-04-22 14:31 | MR ---
EXAMINATION TYPE: MR brain wo con DATE OF EXAM: 04/22/2021 COMPARISON: CT brain 09/27/2020 HISTORY: 65-year-old female I63.9, Cerebral infarction, follow up from CT TECHNIQUE: Multiplanar, multisequence images of the brain and brainstem without IV contrast. Diffusi on weighted imaging is performed. FINDINGS: No evidence for acute infarction, hemorrhage, mass, mass effect, midline shift, herniation, effacemen t of basal cisterns, or extra-axial fluid collection. Very mild age related cerebral cortical volume loss. No hydrocephalus. Major intracranial flow voids are intact. T2/FLAIR weighted sequences show mild scattered right white matter change in the subcortical regions of posterior hemispheres and more mild to moderate in the periatrial white matter. The hypodensity me ntioned in the right parietal lobe on patient CT scan corresponds to some of these white matter bloom es. Midline structures demonstrate normal morphology. The craniocervical junction is normal. 6 mm T2 hyperintensity along the posterior nasopharynx probably a Thornwaldt cyst. Paranasal sinuses are clear. Globes are intact. IMPRESSION: No acute intracranial abnormality or evolving infarct identified. Mild chronic burden of chronic smal l vessel ischemic disease, more mild to moderate in the periatrial white matter regions.
== END | disposition home or self-care (01) ==
LOC: RADMRIMAIN 10:26
PROVIDERS: ATTEND Psychiatry & Neurology Neurology
DX: I67.82 Cerebral ischemia (principal); R90.82 White matter disease, unspecified
CPT/HCPCS: 70551

== ENCOUNTER → 2021-08-10 | Outpatient (CLI) | payer MEDICARE, BC ==
--- NOTE | 2021-08-12 10:53 | MM ---
Reason for exam: screening (asymptomatic). Last mammogram was performed 1 year and 2 months ago. History: Patient is postmenopausal. Family history of breast cancer in mother at age 76. Reductions of both breasts, August 2011. Physical Findings: A clinical breast exam by your physician is recommended on an annual basis and results should be correlated with mammographic findings. MG 3D Screening Mammo W/Cad Bilateral CC and MLO view(s) were taken. Prior study comparison: June 09, 2020, bilateral MG 3d screening mammo w/cad. November 29, 2017, mammogram. The breast tissue is heterogeneously dense. This may lower the sensitivity of mammography. Asymmetries, stable. No significant changes when compared with prior studies. ASSESSMENT: Benign, BI-RAD 2 RECOMMENDATION: Routine screening mammogram of both breasts in 1 year.
== END | disposition home or self-care (01) ==
LOC: RADMAMWWP 13:33
PROVIDERS: ATTEND Family Medicine
DX: Z12.31 Encounter for screening mammogram for malignant neoplasm of breast (principal); Z78.0 Asymptomatic menopausal state; Z80.3 Family history of malignant neoplasm of breast
CPT/HCPCS: 77063; 77067

== ENCOUNTER → 2022-04-06 | Outpatient (CLI) | payer MEDICARE, BC ==
--- NOTE | 2022-04-06 15:25 | US ---
EXAMINATION TYPE: US thyroid st tissue head/neck DATE OF EXAM: 04/06/2022 COMPARISON: Ultrasound 01/11/2019. CLINICAL HISTORY: E04.1 NONTOXIC SINGLE THYROID NOD. thyroid nodule GLAND SIZE: Right Lobe: 3.5 x 1.3 x 1.2 cm Overall Parenchyma: homogenous Left Lobe: 3.3 x 0.9 x 1.0 cm Overall Parenchyma: homogeneous Isthmus Thickness: 0.2 cm NODULES RIGHT: # of nodules measured on right: 1 1. 1.4 X 0.6 x 1.0 cm, lower Prior size: 1.3 x 0.6 x 0.9 cm TIRADS Score: 4 TIRADS Category 4: Moderately Suspicious Composition: Solid or almost completely solid (2 points). Echogenicity: Hypoechoic (2 points). Shape: Wider than tall (0 points). Margin: Smooth (0 points). Echogenic foci: None or large comet-tail artifacts (0 points) Recommendation: If >1.5cm: FNA; If >1cm: Follow up at 1,3,5 years LEFT: # of nodules measured on left: 0 ISTHMUS: # of nodules measured in the isthmus: 0 Bilateral neck scanned, no evidence of lymphadenopathy. IMPRESSION: Right thyroid nodule meets criteria for two-year follow-up. 2017 ACR TI-RADS LEVEL: TR-RADS 4 - Moderately Suspicious: Follow if > 1 cm, FNA if > 1.5 cm *Highest TI-RADS level nodule reported
== END | disposition home or self-care (01) ==
LOC: RADUSWWP 13:34
PROVIDERS: ATTEND Family Medicine
DX: E04.1 Nontoxic single thyroid nodule (principal)
CPT/HCPCS: 76536

== ENCOUNTER → 2022-04-28 | Outpatient (CLI) | payer MEDICARE, BC ==
--- NOTE | 2022-04-29 08:12 | BD ---
EXAMINATION TYPE: Axial Bone Density DATE OF EXAM: 04/28/2022 COMPARISON: 06/07/2012 CLINICAL HISTORY: 66 years year old Female. ICD-10 CODE: G54223 SCREENING FOR OSTEOPOROSIS Height: 61.5 IN Weight: 132 LBS FRAX RISK QUESTIONS: Family History (Parent hip fracture): YES BOTH History of Fracture in Adulthood: RT HAND AGE 32; LT HIP AND PELVIS AGE 65 RISK FACTORS HISTORY OF: Hip Fracture (Left): LEFT AGE 65 Active: YES Postmenopausal woman: AGE 47 Lost more than 2 inches in height since high school: YES 4" MEDICATIONS: Thyroid Medications: YES Which medication: Synthroid How Lon+ YEARS Osteoporosis Medications: NOT NOW Which medication: Fosamax How Lon YEARS Additional Medications: VIT D, COQ10, KRILL OIL, SYNTHROID, BLOOD PRESSURE MEDS, ANGINA MEDS, CHOLEST ESTEVAN MEDS, EXAM MEASUREMENTS: Bone mineral densitometry was performed using the [employer] System. Bone mineral density as measured about the Lumbar spine is: ----- L1-L4(G/cm2): 0834 T Score Values are as follows: ----- L1: -3.6 ----- L2: -3.6 ----- L3: -2.6 ----- L4: -2.4 ----- L1-L4: -2.9 Bone mineral density has: Decreased -7.4% since study of: 06/07/2012 Bone mineral density about the R hip (g/cm2): 0.680 T Score values are as follows: -----R Neck: -2.6 -----R Total: -2.7 Bone mineral density has: Decreased -11.5% since study of: 06/07/2012 FRAX%s: The graph provided illustrates a 36.9 chance for a major osteoporotic fx and a 10.2 chance fo r the hips probability for fx in 10 years time. IMPRESSION: Osteoporosis (T Score less than -2.5). There is increased fracture risk and therapy is usually indicated based on age. Re-Screen 1-2 years. NOTE: T-SCORE=SD OF THE YOUNG ADULT MEAN.
== END | disposition home or self-care (01) ==
LOC: RADBDWWP 16:04
PROVIDERS: ATTEND Family Medicine
DX: Z13.820 Encounter for screening for osteoporosis (principal); M81.0 Age-related osteoporosis without current pathological fracture; M85.89 Other specified disorders of bone density and structure, multiple sites; Z78.0 Asymptomatic menopausal state
CPT/HCPCS: 77080

== ENCOUNTER → 2022-07-20 | Outpatient (CLI) | payer MEDICARE, BC ==
[~2022-07-20] MED LIST: DENOSUMAB 60 MG/ML 1 ML SYRINGE SQ NR
[2022-07-20 14:13] VITALS: BP 133/83; PULSE 80; RESP 16; TEMP 98
== END ==
LOC: PROCWHC3 13:49
PROVIDERS: ATTEND Internal Medicine
DX: M80.00XD Age-related osteoporosis with current pathological fracture, unspecified site, subsequent encounter for fracture with routine healing (principal); Z88.1 Allergy status to other antibiotic agents; Z88.5 Allergy status to narcotic agent; Z88.0 Allergy status to penicillin; Z88.8 Allergy status to other drugs, medicaments and biological substances; Z91.041 Radiographic dye allergy status; Z88.4 Allergy status to anesthetic agent
CPT/HCPCS: 96372; J0897

== ENCOUNTER → 2022-08-11 | Outpatient (CLI) | payer MEDICARE, BC ==
--- NOTE | 2022-08-12 08:14 | MM ---
Reason for Exam: Screening (asymptomatic). Last screening mammogram was performed 12 month(s) ago. Patient History: Menarche at age 9. First Full-Term at age 15. Postmenopausal. Patient has history of breast feeding. 08/2011, Bilateral Reduction. Mother had breast cancer, age 76. Risk Values: Caroline 5 year model risk: 3.5%. NCI Lifetime model risk: 11.0%. Prior Study Comparison: 11/29/2017 Screening Mammogram, Unknown. 06/09/2020 Bilateral Screening Mammogram, [facility]. 08/10/2021 Bilateral Screening Mammogram, [facility]. Tissue Density: The breast tissue is heterogeneously dense. This may lower the sensitivity of mammography. Findings: Analyzed By CAD. There is no suspicious group of microcalcifications or new suspicious mass in either breast. Overall Assessment: Negative, BI-RAD 1 Management: Screening Mammogram of both breasts in 1 year. A clinical breast exam by your physician is recommended on an annual basis and results should be correlated with mammographic findings. [facility] will attempt to contact patient to return for supplemental views and ultrasound if indicated. Electronically signed and approved by: Jeremy Claire DO
== END | disposition home or self-care (01) ==
LOC: RADMAMWWP 14:04
PROVIDERS: ATTEND Obstetrics & Gynecology
DX: Z12.31 Encounter for screening mammogram for malignant neoplasm of breast (principal); Z78.0 Asymptomatic menopausal state; Z80.3 Family history of malignant neoplasm of breast
CPT/HCPCS: 77063; 77067

== ENCOUNTER → 2023-05-15 | Outpatient (CLI) | payer MEDICARE, BC ==
[2023-05-15 14:41] LABS: African American GFR (CKD) 86 (>60 ml/min/1.73 sqM); Blood Urea Nitrogen 20 mg/dL (7-17); Non-African American GFR(CKD) 75 (>60 ml/min/1.73 sqM)
--- NOTE | 2023-05-15 17:20 | CT ---
EXAMINATION TYPE: CT urogram wo/w con CT DLP: 994.9 mGycm, Automated exposure control for dose reduction was used. DATE OF EXAM: 05/15/2023 3:38 PM COMPARISON: 09/27/2020. CLINICAL INDICATION:Female, 67 years old with history of N39.0 URINARY TRACT INFECTION; PHH, UTI TECHNIQUE: Urogram with imaging of the abdomen and pelvis. Coronal and sagittal reformats were performed. 2D and 3D reconstructions are performed to assist visualization of the urinary tract on a separate workstat ion. Contrast used:100 mL of Isovue 370 without and with IV Contrast, Oral contrast used: None. FINDINGS: LOWER CHEST: No significant findings. GENITOURINARY: RIGHT KIDNEY AND URETER: No calculi. No hydronephrosis or hydroureter. No renal mass or other lesions . No urothelial lesions: no filling defect, dilation, stricture or wall thickening. LEFT KIDNEY AND URETER: No calculi. No hydronephrosis or hydroureter. No renal mass or other lesions. No urothelial lesions: no filling defect, dilation, stricture or wall thickening. URINARY BLADDER: REPRODUCTIVE: Unremarkable. ABDOMEN LIVER: Unremarkable. GALLBLADDER AND BILE DUCTS: Dilation of the common bile duct up to 7 mm which is within normal limits for patient's age. PANCREAS: Unremarkable. SPLEEN: Unremarkable. ADRENAL GLANDS: Unremarkable. STOMACH AND BOWEL: . No evidence of bowel obstruction. PERITONEUM: No evidence of pneumoperitoneum, free fluid, or adenopathy. VASCULATURE: No evidence of aortic aneurysm. MUSCULOSKELETAL: No acute osseous abnormalities. Moderate disc degeneration changes are present throu ghout the thoracolumbar spine. Grade 2 anterolisthesis of L4 and L5. Multilevel degeneration with dis c space narrowing, osteophytes and facet joint arthropathy. LYMPH NODES: No gross evidence for lympha denopathy. SOFT TISSUE/ABDOMINAL WALL: Unremarkable IMPRESSION: 1. No evidence of urolithiasis or renal/urothelial neoplasm. 2. No acute abdominal process. 3. Moderate to severe degeneration changes of the spine with grade 2 anterolisthesis of L4 and L5.
== END | disposition home or self-care (01) ==
LOC: RADCTMAIN 14:01
PROVIDERS: ATTEND Internal Medicine
DX: M43.16 Spondylolisthesis, lumbar region (principal); M47.816 Spondylosis without myelopathy or radiculopathy, lumbar region; M51.36 Other intervertebral disc degeneration, lumbar region; N39.0 Urinary tract infection, site not specified
CPT/HCPCS: 82565; 84520; 74178; 36415; 74400; Q9967

== ENCOUNTER → 2023-07-26 | Outpatient (CLI) | payer MEDICARE, BC ==
[2023-07-26 13:25] VITALS: BP 137/82; PULSE 72; RESP 14; TEMP 98.1
[2023-07-26] MEDS: DENOSUMAB 60 MG/ML 1 ML SYRINGE SQ ONE (13:30)
== END ==
LOC: PROCWHC3 12:57
PROVIDERS: ATTEND Internal Medicine
DX: M80.00XD Age-related osteoporosis with current pathological fracture, unspecified site, subsequent encounter for fracture with routine healing (principal)
CPT/HCPCS: 96372; J0897

== ENCOUNTER → 2023-09-05 | Outpatient (CLI) | payer MEDICARE, BC ==
--- NOTE | 2023-09-07 11:36 | MM ---
Reason for Exam: Screening (asymptomatic). Last mammogram was performed 1 year(s) and 1 month(s) ago. Patient History: Menarche at age 9. First Full-Term at age 15. Postmenopausal. Patient has history of breast feeding. 08/2011, Bilateral Reduction. Mother had breast cancer, age 76. Risk Values: Caroline 5 year model risk: 3.5%. NCI Lifetime model risk: 10.6%. Prior Study Comparison: 06/09/2020 Bilateral Screening Mammogram, [facility]. 08/10/2021 Bilateral Screening Mammogram, [facility]. 08/11/2022 Bilateral MG 3D screening mammo w/cad, [facility]. Tissue Density: The breasts are heterogeneously dense, which may obscure small masses. Findings: Analyzed By CAD. There is no suspicious group of microcalcifications or new suspicious mass in either breast. Benign-appearing calcifications. Overall Assessment: Benign, BI-RAD 2 Management: Screening Mammogram of both breasts in 1 year. . Patient should continue monthly self-breast exams. A clinical breast exam by your physician is recommended on an annual basis. This exam should not preclude additional follow-up of suspicious palpable abnormalities. Note on Caroline scores and lifetime risk: 1. A Caroline score greater than 3% is considered moderate risk. If this is the case, consider specialist referral to assess eligibility for a risk reducing agent. 2. If overall lifetime risk for the development of breast cancer is 20% or higher, the patient may qualify for future screening with alternating mammogram and breast MRI. Electronically signed and approved by: Nilesh Gonsales M.D. Radiologis
== END | disposition home or self-care (01) ==
LOC: RADMAMWWP 13:59
PROVIDERS: ATTEND Internal Medicine
DX: Z12.31 Encounter for screening mammogram for malignant neoplasm of breast (principal); Z78.0 Asymptomatic menopausal state; Z80.3 Family history of malignant neoplasm of breast
CPT/HCPCS: 77063; 77067

== ENCOUNTER → 2023-10-17 | Outpatient (CLI) | payer MEDICARE, BC ==
[2023-10-17 15:11] LABS: African American GFR (CKD) >90 (>60 ml/min/1.73 sqM); Blood Urea Nitrogen 17 mg/dL (7-17); Non-African American GFR(CKD) 79 (>60 ml/min/1.73 sqM)
--- NOTE | 2023-10-17 15:43 | CT ---
EXAMINATION TYPE: CT chest wo/w con DATE OF EXAM: 10/17/2023 COMPARISON: The HISTORY: Persistent cough x 1 month, right subscapular pain. CT DLP: 327.0 mGycm Automated exposure control for dose reduction was used. CONTRAST: CT scan of the chest is performed without and with IV Contrast, patient injected with 100 mL of Isovu e 300. FINDINGS: LUNGS: The lungs are grossly clear, there is no concerning parenchymal mass or nodule identified. T here is no pleural effusion or pneumothorax seen. The tracheobronchial tree is patent. MEDIASTINUM: There are no greater than 1 cm hilar or mediastinal lymph nodes. No pericardial effusi on is seen. Thoracic aorta is of normal caliber. The heart is not enlarged. UPPER ABDOMEN: No significant abnormality appreciated. OTHER: No additional significant abnormality is seen. IMPRESSION: No significant abnormality to account for the patient's symptoms.
== END | disposition home or self-care (01) ==
LOC: RADCTMAIN 14:32
PROVIDERS: ATTEND Internal Medicine
DX: R06.02 Shortness of breath (principal); R05.3 Chronic cough
CPT/HCPCS: 82565; 84520; 71270; 36415; Q9967

== ENCOUNTER → 2023-11-09 | Outpatient (CLI) | payer MEDICARE, BC ==
--- NOTE | 2023-11-09 12:09 | FL ---
Exam Date: 11/09/2023 12:02 PM. Modified barium swallow for dysphagia. Consistencies administered: Various consistency of barium. Fluoro time: 1 min 2 sec fluoro time No images were sent to PACS. Please see speech pathology report. DAP: not reported mGym2 Gycm2
== END | disposition home or self-care (01) ==
LOC: RADFLMAIN 11:14
PROVIDERS: ATTEND Internal Medicine Gastroenterology
DX: R07.0 Pain in throat (principal)
CPT/HCPCS: 74230

== ENCOUNTER → 2024-01-23 | Outpatient (CLI) | payer MEDICARE, BC ==
--- NOTE | 2024-01-23 12:48 | FL ---
EXAMINATION TYPE: FL barium swallow DATE OF EXAM: 01/23/2024 CLINICAL HISTORY: Dysphasia TECHNIQUE: A double contrast esophagram is performed utilizing air and barium. A total of 59 second s of fluoroscopic time was utilized during procedure and 40 images obtained. Total dose area product (DAP) in uGy*m?, mGy*cm? (or similar) Provide. COMPARISON: None FINDINGS: There is a posterior compression of the esophagus at level C4-T1 secondary to anterior spur ring. No obstruction. There are tertiary contractions in esophagus with a small hiatal hernia mild ga stroesophageal reflux. No filling defect. IMPRESSION: 1. Small hiatal hernia with mild gastroesophageal reflux. 2. Tertiary contractions of the esophagus. 3. There is posterior impression esophagus in the lower cervical spine secondary anterior hypertrophi c spurring of the vertebral canal. [facility], , 01/23/2024 12:46 PM
== END | disposition home or self-care (01) ==
LOC: RADFLMAIN 10:59
PROVIDERS: ATTEND Internal Medicine Gastroenterology
DX: R13.10 Dysphagia, unspecified
CPT/HCPCS: 74220

== ENCOUNTER → 2024-01-29 | Outpatient (CLI) | payer MEDICARE, BC ==
[2024-01-29 13:08] VITALS: BP 129/84; PULSE 89; RESP 16; TEMP 97.9
[2024-01-29] MEDS: DENOSUMAB 60 MG/ML 1 ML SYRINGE SQ ONE (13:09)
== END ==
LOC: PROCWHC3 12:58
PROVIDERS: ATTEND Internal Medicine
DX: M81.0 Age-related osteoporosis without current pathological fracture (principal)
CPT/HCPCS: 96372

== ENCOUNTER 2024-07-29 12:48 | Outpatient (CLI) | payer MEDICARE, BC ==
[2024-07-29 13:02] VITALS: BP 126/77; PULSE 73; RESP 16; TEMP 97.9
[2024-07-29] MEDS: DENOSUMAB 60 MG/ML 1 ML SYRINGE SQ NR (13:03)
== END 2024-07-29 14:26 | disposition home or self-care (01) ==
LOC: PROCWHC3 12:48
PROVIDERS: ATTEND Internal Medicine
DX: M81.0 Age-related osteoporosis without current pathological fracture (principal)
CPT/HCPCS: 96372; J0897

== ENCOUNTER → 2024-09-05 | Outpatient (CLI) | payer MEDICARE, BC ==
--- NOTE | 2024-09-05 14:38 | MM ---
Reason for Exam: Screening (asymptomatic). Last screening mammogram was performed 12 month(s) ago. Patient History: Menarche at age 9. First Full-Term at age 15. Postmenopausal. Patient has history of breast feeding. 08/2011, Bilateral Reduction. Mother had breast cancer, age 76. Risk Values: Caroline 5 year model risk: 3.5%. NCI Lifetime model risk: 10.1%. Prior Study Comparison: 11/25/2016 Screening Mammogram, Unknown. 11/29/2017 Screening Mammogram, Unknown. 06/09/2020 Bilateral Screening Mammogram, [facility]. 08/10/2021 Bilateral Screening Mammogram, [facility]. 08/11/2022 Bilateral MG 3D screening mammo w/cad, [facility]. 09/05/2023 Bilateral MG 3D screening mammo w/cad, [facility]. Tissue Density: The breasts are heterogeneously dense, which may obscure small masses. Findings: Analyzed By CAD. Right breast: Benign Stable architectural distortion in the upper outer quadrant . There is no suspicious group of microcalcifications or new suspicious mass. Left breast: Benign stable architectural distortion in the left upper outer quadrant.: There is no suspicious group of microcalcifications or new suspicious mass. Overall Assessment: Negative, BI-RAD 1 Management: Screening Mammogram of both breasts in [address] [facility] will attempt to contact patient to return for supplemental views and ultrasound if indicated. Patient should continue monthly self-breast exams. A clinical breast exam by your physician is recommended on an annual basis. This exam should not preclude additional follow-up of suspicious palpable abnormalities. Note on Caroline scores and lifetime risk: 1. A Caroline score greater than 3% is considered moderate risk. If this is the case, consider specialist referral to assess eligibility for a risk reducing agent. 2. If overall lifetime risk for the development of breast cancer is 20% or higher, the patient may qualify for future screening with alternating mammogram and breast MRI. [facility], , 09/05/2024 2:35 PM. Electronically signed and approved by: Jeremy Claire DO
--- NOTE | 2024-09-05 14:58 | BD ---
EXAMINATION TYPE: Axial Bone Density DATE OF EXAM: 09/05/2024 CLINICAL HISTORY: 68 years old Female. ICD-10 CODE: M80.00XD AGE RELATED OSTEO , Additional History : Height: 62" Weight: 140lbs FRAX RISK QUESTIONS: Alcohol (3 or more units per day): No Family History (Parent hip fracture): Yes, mother & father Glucocorticoids (More than 3mos): No (Ex: prednisone, prednisolone, methylprednisolone, dexamethasone, and hydrocortisone). History of Fracture in Adulthood: Yes Secondary Osteoporosis: 1. Type 1 Diabetes: No 2. Hyperthyroidism: No 3. Menopause before 45: No 4. Malnutrition: No 5. Chronic liver disease: No Rheumatoid Arthritis: No Current Tobacco Use: No RISK FACTORS HISTORY OF: Hip Fracture (Right/Left): Cracked left hip socket, 2020 Spine Fracture: No History of Wrist Fracture: No Surgery to Spine/Hip(right/left)/Wrist (right/left): No MEDICATIONS: Thyroid Medications: Yes Which medication: Synthroid How Long: Approx 30 years Osteoporosis Medications: Yes Which medication: Prolia How Long: Going on 2nd year taking this med EXAM MEASUREMENTS: Bone mineral densitometry was performed using the [employer] System. Bone mineral density as measured about the Lumbar spine is: ----- L1-L4(G/cm2): 0.925 T Score Values are as follows: ----- L1: -3.2 ----- L2: -3.1 ----- L3: -1.6 ----- L4: -1.3 ----- L1-L4: -2.1 Z Score Values are as follows: ----- L1: -1.5 ----- L2: -1.3 ----- L3: 0.1 ----- L4: 0.4 ----- L1-L4: -0.4 Bone mineral density has: increased 10.9% since study of: 04/28/2022 Bone mineral density about the R hip (g/cm2): 0.768 T Score values are as follows: -----R Neck: -1.7 -----R Total: -1.9 Z Score values are as follows: -----R Neck: 0.0 -----R Total: -0.4 Bone mineral density has: increased 15.8% since study of: 04/28/2022 FRAX%s: The graph provided illustrates a 26.6% chance for a major osteoporotic fx and a 7.0% chance f or the hips probability for fx in 10 years time. IMPRESSION: Osteoporosis (T Score less than -2.5). There is increased fracture risk and therapy is usually indicated based on age. Re-Screen 1-2 years. NOTE: T-SCORE=SD OF THE YOUNG ADULT MEAN. [facility], , 09/05/2024 2:56 PM
== END | disposition home or self-care (01) ==
LOC: RADBDWWP 13:15
PROVIDERS: ATTEND Internal Medicine
DX: Z12.31 Encounter for screening mammogram for malignant neoplasm of breast (principal); M80.00XD Age-related osteoporosis with current pathological fracture, unspecified site, subsequent encounter for fracture with routine healing; R92.333 Mammographic heterogeneous density, bilateral breasts; Z78.0 Asymptomatic menopausal state; Z80.3 Family history of malignant neoplasm of breast
CPT/HCPCS: 77063; 77067; 77080